=== PATIENT | female | born 1945 | race Caucasian/White ===

== ENCOUNTER 2016-12-07 14:28 | Day surgery (SDC) ==
[2016-12-07] MEDS ORDERED: KEFZOL 2 GM/D5W 50 ML ONE (15:05)
[2016-12-07] MEDS ORDERED: LR 1,000 ML ONE (15:05)
[2016-12-07] MEDS ORDERED: PEPCID ONE (16:12)
[2016-12-07] MEDS ORDERED: REGLAN ONE (16:12)
[2016-12-07] MEDS ORDERED: MARCAINE 0.25% PF/EPI 1:200,000 ONE (16:42)
[2016-12-07] MEDS ORDERED: NEOSPORIN G.U. IRRIGANT ONE (16:43)
[2016-12-07] MEDS ORDERED: DILAUDID ONE (18:17)
[2016-12-07] MEDS ORDERED: FENTANYL ONE (18:18)
[2016-12-07] MEDS ORDERED: DIPRIVAN 1% ONE (18:18)
[2016-12-07] MEDS ORDERED: NORCO-10 ONE (18:25)
--- NOTE | 2016-12-07 18:30 | OPERATIVE NOTE ---
PROCEDURE DATE: 12/07/2016 DATE OF SURGERY: 12/07/2016. PREOPERATIVE DIAGNOSIS: Displaced right Colles fracture. POSTOPERATIVE DIAGNOSIS: Displaced right Colles fracture. PROCEDURE: Open reduction internal fixation of right Colles fracture. SURGEON: Kaz Shah MD. SOLVENT PLANT OPERATOR: Thomas Ryan. ANESTHESIA: General. COMPLICATION: None. PROCEDURE IN DETAIL: This 71-year-old female presents for ORIF of the right distal radius. Risks, benefits and no guarantees were discussed, and she is willing to proceed. She was taken to the operating room and satisfactory anesthesia obtained. Right arm was prepped and draped in usual sterile fashion. A time-out was taken to confirm operative site, procedure, and patient. The arm was placed in gentle longitudinal traction, about the thumb, index and long finger. A volar approach to the distal radius was undertaken through the FCR sheath. The median nerve and flexor tendons were reflected ulnarly, and the volar surface of the distal radius dissected with an elevator. An open reduction of the fracture was noted which was a 2-part fracture. Near- anatomic reduction and good taoism of radial length was noted. The Synthes volar locking plate was then secured to the volar surface and secured with 4 bicortical screws along the plate, and six 18 mm posts distally. The C-arm was used to verify accurate fracture reduction and hardware placement. Afterwards, traction was released and the wrist taken through a range of motion with good stability of the repair. The incision was then irrigated and closed in layers with 2-0 Vicryl in the subcutaneous and 4-0 nylon on the skin. The surgical site was infiltrated with Marcaine for pain control. A volar splint was applied, and she was recovered from anesthesia and transferred to the recovery room in stable condition. Tourniquet was released with good return of capillary blood flow. No intraoperative complications were noted. Instrument count and sponge count was correct at the time of closure.
[2016-12-07 19:06] VITALS: BP 153/65
[2016-12-08] MEDS ORDERED: ROBINUL ONE (09:26)
[2016-12-08] MEDS ORDERED: ZOFRAN ONE (09:26)
[2016-12-08] MEDS ORDERED: XYLOCAINE-MPF 2% ONE (09:26)
== END 2016-12-07 19:00 | disposition home or self-care (01) ==
LOC: OR 14:28
PROVIDERS: ATTEND Orthopaedic Surgery Adult Reconstructive Orthopaedic Surgery
DX: S52.531A Colles' fracture of right radius, initial encounter for closed fracture (principal); G35 Multiple sclerosis; I10 Essential (primary) hypertension; K21.9 Gastro-esophageal reflux disease without esophagitis; E03.9 Hypothyroidism, unspecified
CPT/HCPCS: 76000; J0690; J1170; J2405; J3010; J7120

== ENCOUNTER 2018-12-19 13:19 | Inpatient (IN) ==
--- NOTE | 2018-12-19 14:05 | PROVIDER DOCUMENTATION ---
This chart was entered by Alta Britton Scribe, acting as scribe for Becky Quigley MD. HPI-Psychological Disorder - General Chief Complaint: Psych Stated Complaint: FALL/FACIAL INJURY Time Seen by Provider: 12/19/18 13:49 Source: patient Allergies/Adverse Reactions: Patient Allergies Allergy/AdvReac Type Severity Reaction Status Date / Time amoxicillin [Amoxicillin] Allergy RASH Verified 12/04/16 17:44 sulfamethoxazole Allergy RASH Verified 12/04/16 17:44 [From Bactrim] trimethoprim [From Bactrim] Allergy RASH Verified 12/04/16 17:44 Home Medications: Home Medication List Medication Instructions Recorded Confirmed Last Taken Type Clonazepam [Klonopin] 0.5 mg PO PRN PRN 07/28/16 12/07/16 10/11/16 09:00 History Furosemide [Lasix] 20 mg PO DAILY 07/28/16 12/07/16 12/06/16 08:00 History Metoprolol [Lopressor] 25 mg PO DAILY 07/28/16 12/07/16 12/07/16 08:00 History ROSUVAstatin [Crestor] 10 mg PO DAILY 07/28/16 12/07/16 12/06/16 20:00 History Tolterodine Tartrate [Detrol LA] 4 mg PO DAILY 07/28/16 12/07/16 12/06/16 08:00 History Amphetamine Salts [Adderall] 10 mg PO BID 10/12/16 12/07/16 10/12/16 09:00 History Dalfampridine [Ampyra] 10 mg PO BID 10/12/16 12/07/16 12/06/16 20:00 History Fluoxetine [Prozac] 60 mg PO DAILY 10/12/16 12/07/16 12/06/16 08:00 History Lansoprazole [Prevacid] 15 mg PO DAILY 10/12/16 12/07/16 12/07/16 08:00 History Potassium Chloride 20 meq PO DAILY 10/12/16 12/07/16 12/06/16 08:00 History Aspirin EC 81 mg PO DAILY 10/13/16 12/07/16 12/07/16 08:00 History Hydrocodone/APAP 7.5 mg/325 mg 1 each PO Q6H PRN PRN #12 tablet 12/04/1612/07/16 10:00 Rx [[place]-7.5] Ondansetron Odt [Zofran 4 mg Odt] 4 mg PO Q6H PRN PRN #20 tablet 12/04/1612/07/16 10:00 Rx Cephalexin [Keflex] 500 mg PO 4XDAY #12 capsule 12/07/16 Unknown Rx Hydrocodone/Acetaminophen [[place] 1 - 2 each PO Q4-8H PRN PRN #40 12/07/16 Unknown Rx 10-325 Tablet] tablet Levothyroxine [Synthroid] 25 microgm PO DAILY 12/07/16 12/07/16 12/06/16 08:00 History Promethazine [Phenergan] 25 mg PO Q6H PRN PRN #20 tablet 12/07/16 Unknown Rx - History of Present Illness-Psych Nature of Presenting Problem: 73 yof presents to ed w/co fell monday and right side of face is bruised and swollen after pt fainted. pt started taking new htn meds and felt it made her dizzy and was having difficulty walking. after fainting she quit taking them for 4-5 days now. pt also c/o hearing a male voice saying her name and that she is going to harm her and kill her family and that she is moron. pt states she went to see sister in [place] 6 weeks ago and the man followed her there and back. there are now other people with him. pt states she is supposed to have mri done tomorrow. family brought pt her concerned about her hearing voices and seeing people, living alone and falling. pt says the peopl have tried to get in her house, but she has an alarm system, which has not been alarming when they try to get in the house. Onset/Duration: reports: other (6 weeks of hallucinations) Review of Systems - Adult - REVIEW OF SYSTEMS - ADULT Constitutional: reports: no symptoms reported Eyes: reports: no symptoms reported Ears, Nose, Mouth & Throat: reports: no symptoms reported Cardiovascular: reports: no symptoms reported Respiratory: reports: no symptoms reported Gastrointestinal: reports: no symptoms reported Genitourinary: reports: no symptoms reported Musculoskeletal: reports: no symptoms reported Integumentary: reports: see HPI, other (bruise and swelling on right side of face from fall on monday) Neurological: reports: no symptoms reported Psychiatric: reports: see HPI, anxiety, anti-depressant use (pt takes prozac.), panic attacks, other (schizophrenic, hearing voices.). denies: alcohol/drug dependence, depression, insomnia, suicidal thoughts Endocrine: reports: no symptoms reported Hematologic/Lymphatic: reports: no symptoms reported Allergic/Immunologic: reports: no symptoms reported All Other Systems: Reviewed and Negative Past History - Adult - PAST MEDICAL HISTORY-ADULT Review of Records: reports: Old Records Reviewed, Nursing Assessment Review, Medications Reviewed, Social history reviewed & non-contributory. Major Childhood Illnesses: reports: denies history Cardiovascular: reports: CHF, HTN Respiratory: reports: denies history Gastrointestinal: reports: denies history Obstetrical/Gynecological: reports: denies history Genitourinary: reports: kidney stones Musculoskeletal: reports: other (multiple sclerosis) Neurological: reports: denies history Psychiatric: reports: anxiety, depression Endocrine/Immune: reports: denies history Other Conditions: reports: denies history - PRIOR SURGERIES/PROCEDURES Surgical/Procedure History: reports: orthopedic (extremity) (left wrist), other (bi-lat tka, cyst removed from kidney) - IMMUNIZATION STATUS Childhood Immunizations: See Nurse Assessment Flu Vaccine: See Nurse Assessment - FAMILY HISTORY Family History: reviewed, not pertinent Physical Exam-Psych Focus - Physical Exam-Psych Initial Vital Signs Reviewed: Yes Appearance: appropriate appearance, neat, no apparent distress, denies illness, alert, anxious, other (right facial aging ecchymosis of cheek, pt said she had a black eye and it is better, mildly tender without crepitus) Neurological: alert, normal mood/affect, calm, 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, oriented x 3 Thoughts/Hallucinations: auditory hallucinations, paranoid, visual hallucinations HENMT: moist mucous membranes, pharynx normal Neck: non-tender, full range of motion Respiratory: chest non-tender, lungs clear, normal breath sounds, no pleuratic chest pain, no respiratory distress, no accessory muscle use Cardiovascular: normal peripheral pulses, regular rate, rhythm Abdominal Exam: non tender, soft Lymphatic: no adenopathy Back Exam: normal inspection Extremity: normal range of motion, normal gait Integumentary: normal color, normal turgor, warm/dry, other (see HEENT) Progress - PLAN OF CARE/RESULTS Progress/Plan/Lab Results: Vital Signs - 8 hr 12/19/18 13:37 Temperature 98.3 F Pulse Rate 79 Respiratory Rate 18 Blood Pressure 166/91 O2 Sat by Pulse Oximetry 95 Laboratory Results - last 24 hr 12/19/18 12/19/18 12/19/18 13:45 14:00 14:00 WBC 5.39 RBC 4.12 L Hgb 12.2 Hct 37.8 MCV 91.7 MCH 29.6 MCHC 32.3 L RDW Std Deviation 13.7 Plt Count 238 MPV 10.2 Immature Gran % (Auto) 0.2 Neut % (Auto) 62.2 Lymph % (Auto) 27.8 [place] % (Auto) 8.5 Eos % (Auto) 0.7 Baso % (Auto) 0.6 Immature Gran # (Auto) 0.01 Neut # (Auto) 3.35 Lymph # (Auto) 1.50 [place] # (Auto) 0.46 Eos # (Auto) 0.04 Baso # (Auto) 0.03 Sodium 143 Potassium 3.8 Chloride 102 Carbon Dioxide 28 Anion Gap 13 BUN 7 L Creatinine 0.8 Estimated GFR/1.73 m2 > 60 BUN/Creatinine Ratio 9 Glucose 113 H Calculated Osmolality 284 Calcium 8.5 L Total Bilirubin 1.00 AST 15 ALT 7 L Alkaline Phosphatase 62 Ukc-U-Suehsoadzte Pept Total Protein 6.7 Albumin 3.9 Globulin 3.0 Albumin/Globulin Ratio 1.0 TSH Free T4 Salicylates < 3.00 L Urine Opiates Screen NONE DETECTED Ur Oxycodone Screen NONE DETECTED Urine Methadone Screen NONE DETECTED U Propoxyphene Qual NONE DETECTED Acetaminophen < 1.2 L Ur Barbituates Screen NONE DETECTED Ur Tricyclics Screen NONE DETECTED Ur Phencyclidine Scrn NONE DETECTED Ur Amphetamines Screen NONE DETECTED U Methamphetamines Scrn NONE DETECTED U Benzodiazepines Scrn PRESUMPTIVE POSITIVE A Urine Cocaine Screen NONE DETECTED U Cannabinoids Screen NONE DETECTED Plasma/Serum Ethyl Alc 12/19/18 12/19/18 12/19/18 14:00 14:00 14:00 WBC RBC Hgb Hct MCV MCH MCHC RDW Std Deviation Plt Count MPV Immature Gran % (Auto) Neut % (Auto) Lymph % (Auto) [place] % (Auto) Eos % (Auto) Baso % (Auto) Immature Gran # (Auto) Neut # (Auto) Lymph # (Auto) [place] # (Auto) Eos # (Auto) Baso # (Auto) Sodium Potassium Chloride Carbon Dioxide Anion Gap BUN Creatinine Estimated GFR/1.73 m2 BUN/Creatinine Ratio Glucose Calculated Osmolality Calcium Total Bilirubin AST ALT Alkaline Phosphatase Xda-A-Qyvjxsmpiqo Pept Total Protein Albumin Globulin Albumin/Globulin Ratio TSH 0.23 L Free T4 1.66 Salicylates Urine Opiates Screen Ur Oxycodone Screen Urine Methadone Screen U Propoxyphene Qual Acetaminophen Ur Barbituates Screen Ur Tricyclics Screen Ur Phencyclidine Scrn Ur Amphetamines Screen U Methamphetamines Scrn U Benzodiazepines Scrn Urine Cocaine Screen U Cannabinoids Screen Plasma/Serum Ethyl Alc 12/19/18 14:00 WBC RBC Hgb Hct MCV MCH MCHC RDW Std Deviation Plt Count MPV Immature Gran % (Auto) Neut % (Auto) Lymph % (Auto) [place] % (Auto) Eos % (Auto) Baso % (Auto) Immature Gran # (Auto) Neut # (Auto) Lymph # (Auto) [place] # (Auto) Eos # (Auto) Baso # (Auto) Sodium Potassium Chloride Carbon Dioxide Anion Gap BUN Creatinine Estimated GFR/1.73 m2 BUN/Creatinine Ratio Glucose Calculated Osmolality Calcium Total Bilirubin AST ALT Alkaline Phosphatase Bkk-I-Ltpfgnuoxcb Pept 1759 H Total Protein Albumin Globulin Albumin/Globulin Ratio TSH Free T4 Salicylates Urine Opiates Screen Ur Oxycodone Screen Urine Methadone Screen U Propoxyphene Qual Acetaminophen Ur Barbituates Screen Ur Tricyclics Screen Ur Phencyclidine Scrn Ur Amphetamines Screen U Methamphetamines Scrn U Benzodiazepines Scrn Urine Cocaine Screen U Cannabinoids Screen Plasma/Serum Ethyl Alc Orders Category Date Time Status Consult for Inpt Psych Tx As Directed Care 12/19/18 13:47 Inactive Initiate Psych Med Clear.Huong As Directed Care 12/19/18 13:47 Active CHEST-2 VIEWS [RAD] Stat Exams 12/19/18 16:[address] HEAD W/O CONTRAST [CT] Stat Exams 12/19/18 14:[address] MAXILLOFACIAL(SINUS) W/O CO [CT] Stat Exams 12/19/18 14:02 Completed ACETAMINOPHEN [TDM] Stat Lab 12/19/18 14:00 Completed ALCOHOL BLOOD Stat Lab 12/19/18 14:00 Completed BNP [PRO B-NATRIURETIC PEPTIDE] Stat Lab 12/19/18 14:00 Completed CBC WITH DIFF [HEME] Stat Lab 12/19/18 14:00 Completed COMPREHENSIVE METABOLIC PANEL [CHEM] Stat Lab 12/19/18 14:00 Completed FREE T4 Stat Lab 12/19/18 14:00 Completed SALICYLATES [TDM] Stat Lab 12/19/18 14:00 Completed TSH Stat Lab 12/19/18 14:[address] W/POSS RFLX CULT [URINALYSIS] Stat Lab 12/19/18 17:39 Uncollected URINE DRUG SCREEN PL Stat Lab 12/19/18 13:45 Completed Psychiatric Clearance (Initial) Stat Oth 12/19/18 13:47 Ordered EKG [EKG] Stat Ther 12/19/18 13:[address] and facial neg for injury 1542 d/w Dr Cross EKG, agrees with afib which is new since though 2015 which is most recent EKG, was NSR then. Pt may need an outpatient eval by cardiology based on family agreement. [facility] asked for chest xray which has been done .1740 d/w Martha NOVAK at [facility], concern is that afib is new, apparently, and BNP is elevated, they feel she needs cardiac eval before accepting, call out to [facility], UA did not get done either 1807 d/w Ciro HPI exam results [facility] concerns new afib fall/syncope last week and requests cardiac eval, Dr Lizama is pts cards , agreed to admit, UA pending Result Diagrams: 12/19/18 14:00 12/19/18 14:00 - REASSESSMENT Reassessment #1 Time Reassessed: 17:36 (Dr. quigley spoke with martha at [facility] about pt ) Status: unchanged - EKG 1 Time of EKG reading by physician:: 14:00 EKG Read and Signed by:: Becky Quigley EKG Interpretation (*Must complete 3 of following elements*): Abnormal Rate: 72 Rhythm: Afib [place]: normal ST Wave: non-specific ST changes (non specific st and t wave abnormality) Departure - Departure Date of Disposition Decision: 12/19/18 Time of Disposition Decision: 17:54 DIAGNOSIS: Fall, Paranoia (psychosis), Auditory hallucinations, Visual hallucinations, Atrial fibrillation Disposition: ADMITTED INPATIENT 09 Certified Medical Emergency: Emergent Condition: Good Referrals and Follow-Ups: Sue Goldman MD [Primary Care Provider] - - Critical Care Note This patient required my direct & personal management of CC.: No Attestation - Physician/ TAL Attestation The physician spent face to face time with patient:: Yes Advanced Practice Provider documentation review:: Supervising physician onsite and consulted in the evaluation and care of this patient. The physician did have a face to face encounter with the patient. This chart was documented by the indicated scribe, (Alta Britton Scribe) and accurately reflects the services I performed and decisions made by me, Becky Quigley MD, as attested by the provider's signature.
[2018-12-19 14:26] LABS: BASO# 0.03 X1000 (0.0-0.2); BASO% 0.6 % (0.0-0.8); EOS# 0.04 X1000 (0.0-0.7); EOS% 0.7 % (0.0-10.0); HEMATOCRIT 37.8 % (37.0-47.0); HEMOGLOBIN 12.2 g/dL (12.0-16.0); IMM GRAN# 0.01 X1000 (0.0-0.04); IMM GRAN% 0.2 % (0.0-0.5); LYMPH% 27.8 % (20.5-51.1); MCH 29.6 PG (27-31); MCHC 32.3 g/dL (33-37); MCV 91.7 FL (81-99); MONO# 0.46 X1000 (0.11-0.59); MONO% 8.5 % (1.7-9.3); MPV 10.2 FL (7.4-10.4); NEUT# 3.35 X1000 (1.4-6.5); NEUT% 62.2 % (42.2-75.2); PLT 238 X1000 (130-400); RBC 4.12 XMIL (4.2-5.4); RDW 13.7 % (11.5-14.5); WBC 5.39 X1000 (4.8-10.8)
[2018-12-19 14:27] LABS: ACETAMINOPHEN < 1.2 ug/mL (10-30); AGAP 13; ALBUMIN 3.9 g/dL (3.5-5.0); ALKALINE PHOSPHATASE 62 U/L (32-104); BUN 7 mg/dL (8-22); CALCIUM 8.5 mg/dL (8.8-10.2); CHLORIDE 102 mmol/L (98-107); COSMO 284; CREATININE 0.8 mg/dL (0.5-0.9); ESTIMATED GFR > 60; GLUCOSE 113 mg/dL (70-104); GOT 15 U/L (10-30); GPT 7 U/L (10-36); POTASSIUM 3.8 mmol/L (3.5-5.1); SALICYLATES < 3.00 mg/dL (3-10); SODIUM 143 mmol/L (136-145); TCO2 28 mmol/L (25-35); TOTAL PROTEIN 6.7 g/dL (6.3-8.3)
[2018-12-19 14:30] LABS: UR AMPHETAMINES QUAL NONE DETECTED (NONE DETECT); UR BARBITUATES QUAL NONE DETECTED (NONE DETECT); UR BENZODIAZEPIN QUAL PRESUMPTIVE POSITIVE (NONE DETECT); UR CANNABINOIDS QUAL NONE DETECTED (NONE DETECT); UR COCAINE QUAL NONE DETECTED (NONE DETECT); UR METHADONE QUAL NONE DETECTED (NONE DETECT); UR METHAMPHETAMINE QUAL NONE DETECTED (NONE DETECT); UR OPIATES QUAL NONE DETECTED (NONE DETECT); UR OXYCODONE QUAL NONE DETECTED (NONE DETECT); UR PCP QUAL NONE DETECTED (NONE DETECT); UR PROPOXYPHENE QUAL NONE DETECTED (NONE DETECT); UR TCA QUAL NONE DETECTED (NONE DETECT)
--- NOTE | 2018-12-19 14:34 | Diag Imaging Result Doc PS360 ---
EXAM: CT HEAD W/O CONTRAST HISTORY: fall TECHNIQUE: CT head without contrast COMPARISON: 12/04/2016 FINDINGS: No parenchymal hemorrhage. No epidural or subdural hematoma. No subarachnoid hemorrhage. There are chronic microvascular ischemic changes. No mass identified on this noncontrasted exam. No hydrocephalus. No skull fracture. IMPRESSION: No hemorrhage. No injury. This exam was performed using automated exposure control, adjustment of mA or kV according to patient size, and/or use of iterative reconstruction technique. Electronically signed by Catracho Arango 12/19/2018 2:31 PM
--- NOTE | 2018-12-19 14:39 | Diag Imaging Result Doc PS360 ---
EXAM: CT MAXILLOFACIAL(SINUS) W/O CO HISTORY: fall, facial injury TECHNIQUE: CT face without contrast COMPARISON: None. FINDINGS: No sinus opacification. No air-fluid levels. No fracture. No dislocation. Right cheek subcutaneous edema consistent with a small hematoma. IMPRESSION: No acute bony injury Electronically signed by Catracho Arango 12/19/2018 2:37 PM
--- NOTE | 2018-12-19 16:31 | Diag Imaging Result Doc PS360 ---
EXAM: CHEST-2 VIEWS HISTORY: per [place] TECHNIQUE: Chest two views COMPARISON: 09/01/2016 FINDINGS: The lungs are hyperexpanded. The heart is not enlarged. The vessels are not distended. There are minimal increased markings in the right lung base. No pleural effusions. IMPRESSION: Atelectasis versus a tiny infiltrate in the right lung base Electronically signed by Catracho Arango 12/19/2018 4:29 PM
[2018-12-19] MEDS ORDERED: NITROGLYCERIN SL PRN (18:13)
[2018-12-19] MEDS ORDERED: ZOFRAN IV PRN (18:13)
[2018-12-19] MEDS ORDERED: TYLENOL PO PRN (18:13)
[2018-12-19 18:22] LABS: BILIRUBIN URINE NEGATIVE (NEGATIVE); BLOOD URINE TRACE (NEGATIVE); CLARITY CLEAR (CLEAR); COLOR YELLOW; GLUCOSE URINE NEGATIVE (NEGATIVE); KETONE URINE 2+(Moderate) mg/dL (NEGATIVE); LEUKOCYTES URINE 1+ (NEGATIVE); NITRITE URINE NEGATIVE (NEGATIVE); PH URINE 6.5; PROTEIN URINE NEGATIVE (NEGATIVE); SP GRAVITY URINE 1.015; UROBILINOGEN URINE NORMAL
[2018-12-19 18:31] LABS: URINE SOURCE CLEAN CATCH
[2018-12-19 18:33] LABS: URINE BACTERIA 2+ /HFP; URINE EPITHELIAL CELLS >10 /HPF (<10); URINE RBC <10 /HPF (<10)
[2018-12-19 18:34] LABS: URINE CAST NONE SEEN /LPF; URINE CRYSTAL NONE SEEN /HPF; URINE YEAST NONE SEEN /HPF
[2018-12-19] MEDS: LOVENOX SUBQ SCH (18:38)
--- NOTE | 2018-12-19 22:56 | HISTORY AND PHYSICAL ---
CHIEF COMPLAINT: Fall with facial injury. HISTORY OF PRESENT ILLNESS: The patient is a 73-year-old female who presented to the emergency department after having fallen several days ago and bruised her face. She still had some bruising and swelling on her face. The patient states that she fainted. She has no recollection of the event, does not remember feeling lightheaded, weak or dizzy prior to the event. Does not remember having any disorientation after the event. Does note that she started taking new blood pressure medications and has felt dizzy off and on and having difficulty walking. States that she stopped them 4 to 5 days ago, which was a few days prior to her fall. The patient unfortunately notes that she has been hearing a male voice stating her name, stating it is going to harm her and kill her family. Notes that she went to visit her sister 6 weeks ago in [place] and feels as though the person followed her there and back. Now notes that there are more people with him. They are also talking to her. She states that people have tried to get into her house, and although she has an alarm system, somehow they have been able to get in without the alarm going off. ALLERGIES: Amoxicillin, Bactrim causing rash. MEDICATIONS: Klonopin 0.5 p.r.n., Lasix 20, metoprolol 25 daily, Crestor 10, Detrol LA 4, Adderall 10 twice daily. It appears as though she has been on Synthroid and hydrocodone in the past. Unfortunately do not have a current active list. REVIEW OF SYSTEMS: Essentially unobtainable from Ms. Casarez given her confusion, although the family that is with her denies any knowledge of fevers, upper respiratory infection and denied any knowledge of GI or issues or chest pain or shortness of breath. PAST MEDICAL HISTORY: Congestive heart failure, hypertension, multiple sclerosis, chronic kidney stones. She has had left wrist surgery. She has had cysts removed from the kidneys and bilateral knee replacement. FAMILY HISTORY: Noncontributory. SOCIAL HISTORY: Patient currently lives at home alone. She does have family in the area that helps take care of her. She does not smoke or drink. PHYSICAL EXAMINATION: VITAL SIGNS: Temperature 98.3 degrees, pulse 79, respiratory rate 18, BP 166/91. GENERAL: Patient is awake, alert. She is currently in no respiratory distress. She is sitting in the chair, very pleasant to talk with, calm. HEENT: Normocephalic. NECK: Supple. CARDIOVASCULAR: Regular rate. No murmurs. CHEST: Clear. Nonlabored. ABDOMEN: Soft, nondistended. EXTREMITIES: Moves all extremities. NEUROLOGIC: No focal neurological changes, although patient is awake and alert. She is oriented to person, place and being at the hospital. She is confused and has been hearing voices. ASSESSMENT: 1. Atrial fibrillation. Currently she is rate controlled, and on exam her heart rate is fairly regular, but her EKG demonstrates atrial fibrillation. Does have a history of congestive heart failure, which certainly could be the causal agent of her atrial fibrillation. We will check thyroid, rule out myocardial infarction, place her on telemetry and follow. 2. Congestive heart failure. We will check an echocardiogram to make sure this has not worsened. 3. Syncope of undetermined origin. Certainly her syncopal episode could have been from an irregular rhythm but also could have had vasovagal syncope. Given her confusion, this is a difficult history to obtain as this occurred while she was alone. 4. Hypertension. 5. Others. 6. Dementia. PLAN: We will continue patient in the hospital, place her on telemetry, rule out NV. Check an echo. After she is stable, we will consult Margie Forrest. cc: Shan Tanner MD
[2018-12-20] MEDS ORDERED: BENADRYL PO PRN (00:12)
[2018-12-20] MEDS: PRILOSEC PO SCH (06:13)
[2018-12-20 06:35] LABS: HEMATOCRIT 35.1 % (37.0-47.0); HEMOGLOBIN 11.3 g/dL (12.0-16.0); MCH 29.7 PG (27-31); MCHC 32.2 g/dL (33-37); MCV 92.1 FL (81-99); MPV 10.5 FL (7.4-10.4); RBC 3.81 XMIL (4.2-5.4); WBC 4.16 X1000 (4.8-10.8)
[2018-12-20 06:52] LABS: AGAP 13; ALBUMIN 3.5 g/dL (3.5-5.0); ALKALINE PHOSPHATASE 56 U/L (32-104); BUN 8 mg/dL (8-22); CALCIUM 8.1 mg/dL (8.8-10.2); CHLORIDE 103 mmol/L (98-107); CHOLESTEROL 82 mg/dL (0-200); COSMO 284; CREATININE 0.7 mg/dL (0.5-0.9); ESTIMATED GFR > 60; GLUCOSE 106 mg/dL (70-104); GOT 14 U/L (10-30); GPT 5 U/L (10-36); HDL 32 mg/dL (45-65); LDL 34 mg/dL; POTASSIUM 3.4 mmol/L (3.5-5.1); SODIUM 143 mmol/L (136-145); TCO2 27 mmol/L (25-35); TOTAL PROTEIN 5.9 g/dL (6.3-8.3); TRIGLYCERIDES 81 mg/dL (35-135); VLDL 16 mg/dL
[2018-12-20] MEDS: SYNTHROID PO SCH (07:40)
[2018-12-20] MEDS: ROCEPHIN 1 GM in NS 50 ML IV SCH (07:40)
[2018-12-20] MEDS: DETROL LA PO SCH (08:52)
[2018-12-20] MEDS: PROZAC PO SCH (08:52)
[2018-12-20] MEDS: LOPRESSOR PO SCH (08:53)
[2018-12-20] MEDS: LASIX PO SCH (08:53)
[2018-12-20] MEDS: ASPIRIN EC PO SCH (09:00)
[2018-12-20] MEDS ORDERED: ASPIRIN PO SCH (09:00)
[2018-12-20] MEDS ORDERED: LANSOPRAZOLE 15 MG PO SCH (09:00)
--- NOTE | 2018-12-20 09:15 | EKG Report ---
Test Performed on : 12/19/2018 1:57:49 PM Test Reason : psych medical screen Blood Pressure : / mmHG Vent. Rate : 072 BPM Atrial Rate : 102 BPM P-R Int : 000 ms QRS Dur : 084 ms QT Int : 424 ms P-R-T Axes : 000 045 074 degrees QTc Int : 464 ms Atrial fibrillation. Nonspecific ST and T wave abnormality Abnormal ECG When compared with ECG of 01-SEP-2016 11:04, Atrial fibrillation. has replaced Sinus rhythm. Nonspecific T wave abnormality now evident in Lateral leads Unconfirmed Result
[2018-12-20] MEDS: LOVENOX SUBQ SCH ×2 (17:09→17:14)
[2018-12-20] MEDS ORDERED: BLISTEX MEDICATED BERRY LIP BALM TOP PRN (18:41)
[2018-12-20] MEDS ORDERED: KLONOPIN PO SCH (21:00)
[2018-12-20] MEDS ORDERED: BENADRYL PO SCH (21:00)
[2018-12-20] MEDS ORDERED: CRESTOR PO SCH (21:00)
--- NOTE | 2018-12-20 23:34 | PROGRESS NOTE ---
DATE: 12/20/2018 SUBJECTIVE: Patient herself has no complaints. There is no family currently present. She denies any pain. Denies any fevers or chills. PHYSICAL EXAMINATION: Vital Signs: Temperature 97.7 degrees, pulse stable respiratory 18, BP 159/81. General: Patient is awake, alert. Currently, she is in no distress. HEENT: Normocephalic. Neck: Supple. CARDIOVASCULAR: Regular rate. Chest: Relatively clear, still with leukocytosis. ASSESSMENT: 1. Atrial fibrillation. Currently she is rate controlled. Will continue to follow. 2. Congestive heart failure. Echo is pending currently.. 3. Syncope of undetermined origin. 4. Hypertension. 5. Others. 6. Dementia. Plan: Patient has been stable. If echo and exam remain normal, we will consult [facility] for eval. cc: Shan Tanner MD MTDD
[2018-12-21] MEDS: SYNTHROID PO SCH (06:09)
[2018-12-21] MEDS: ROCEPHIN 1 GM in NS 50 ML IV SCH (06:09)
[2018-12-21] MEDS: PRILOSEC PO SCH (06:09)
[2018-12-21] MEDS: LASIX PO SCH (09:20)
[2018-12-21] MEDS: PROZAC PO SCH (09:20)
[2018-12-21] MEDS: LOPRESSOR PO SCH (09:21)
[2018-12-21] MEDS: ASPIRIN EC PO SCH (09:21)
[2018-12-21] MEDS: DETROL LA PO SCH (09:21)
[2018-12-21 16:28] VITALS: BP 130/43
[2018-12-21] MEDS: LOVENOX SUBQ SCH (18:38)
--- NOTE | 2018-12-21 23:20 | DISCHARGE SUMMARY ---
ADMISSION DATE: 12/19/2018 DISCHARGE DATE: 12/21/2018 ADDENDUM: Patient seen and examined by myself. Full note dictated and discussed with nurse practitioner. On discharge the patient is awake, alert but confused. As noted in the HPI, she has been hearing voices. Thankfully, she had a uneventful hospital course. Blood pressures are improved. She was admitted to the hospital with atrial fibrillation,. Currently she is sinus rhythm. She is doing well. Echocardiogram is pending. The patient had a presumed urinary tract infection and was placed on antibiotics. DISPOSITION: On discharge, she is awake, alert. She is still confused. She is in no distress, and will be discharged to [facility]. cc: Shan Tanner MD
--- NOTE | 2018-12-22 19:40 | DISCHARGE SUMMARY ---
ADMISSION DATE: 12/19/2018 DISCHARGE DATE: 12/21/2018 DIAGNOSES: 1. Atrial fibrillation chronic with controlled rate. 2. Congestive heart failure. 3. Syncope of undetermined origin. 4. Hypertension. 5. Kidney stones. 6. Thyroid disease. DIAGNOSTICS: 1. On 12/19/2018, CT of the head revealed no hemorrhage, no injury. 2. Maxillofacial CT revealed no acute bony injury. 3. Chest x-ray, atelectasis with a tiny infiltrate in the right lung base. HOSPITAL COURSE: Ms. Casarez presented to the emergency room for medical clearance, to be admitted to [facility] and evaluated for a bruise to the right side of her face from a fall that had been several days prior. CT of the head and maxillofacial CT both revealed no acute injury. Heart rate was controlled throughout the hospitalization, ranging from 47 to 79. She was in atrial fibrillation. She does have a history of congestive heart failure. Echocardiogram was performed. We are awaiting results. DISCHARGE PHYSICAL EXAMINATION: Cardiovascular: Regular rate and rhythm. S1 and S2 appreciated. Pulmonary: Breath sounds are clear with no increased work of breathing noted. Gastrointestinal: Abdomen is soft, nontender, nondistended with bowel sounds in all 4 quadrants. Skin: Warm and dry. She does have a bruise to the right side of her face from a fall prior to admission. Discharge Vital Signs: Blood pressure is 149/58 with a heart rate of 64, respirations 16, temperature is 98 oral with room air saturations 95-98%. DISCHARGE MEDICATIONS: Benadryl 25 mg p.o. at bedtime, enteric-coated aspirin 81 mg p.o. daily, Crestor 10 mg p.o. at bedtime, Klonopin 0.5 mg at bedtime, Lasix 20 mg daily, Lopressor 50 mg daily, Prevacid 15 mg daily. Prozac 60 mg daily. Tolterodine tartrate 4 mg p.o. daily. PLAN: 1. TSH needs to be rechecked in 2 weeks. 2. She is being discharged in transfer to [facility] in stable condition. TIME SPENT: This is a greater than 30 minute discharge. Dictated by MARCIN Arredondo for Shan Tanner MD This chart was documented by, MARCIN Arredondo and accurately reflects the services performed, treatment plan and medical decisions as attested by the providers signature Shan Tanner MD. cc: MARCIN Arredondo MD [facility]
--- NOTE | 2018-12-24 10:39 | ECHO REPORT ---
ORDER DATE: 12/20/2018 MEASUREMENTS: 1. Septal thickness 1. 2. Posterior wall thickness 1. 3. Left ventricular internal diameter diastole 5.8. 4. Left ventricular internal diameter in systole 3.8. 5. Left atrium 4.4. 6. Aortic root 3. SUMMARY: 1. Adequate quality study. 2. Aortic valve is trileaflet and opens normally on 2-dimensional images. Peak gradient across the aortic valve is less than 10 mmHg. Mitral, tricuspid, and pulmonic valves are without evidence of structural abnormality with very mild mitral regurgitation and mild tricuspid regurgitation. Estimated systolic PA pressure by Doppler is 50 mmHg suggesting moderate pulmonary hypertension. The aortic root is normal in size. 3. Normal left ventricular dimensions suggested on 2-dimensional images. Estimated left ejection fraction appears to be approximately 60%. No regional wall motion abnormality is evident. Mild left atrial enlargement is demonstrated. Right atrium is mildly enlarged. Right ventricle is grossly normal in size. 4. No pericardial effusion. 5. Appearance of inferior vena cava suggests normal central venous pressure. cc: MD Shan Urrutia MD
== END 2018-12-21 19:52 | DRG 309 ==
LOC: P.ED 13:19 → P.MEDSURG 19:02
PROVIDERS: ATTEND Family Medicine
CPT/HCPCS: 70450; 70486; 71020; 71046; 80053; 80061; 80104; 80196; 80301; 80305; 80307; 80320; 80324; 80329; 81001; 82003; 82055; 82550; 83735; 83880; 84439; 84443; 84484; 85025; 85027; 87040; 87088; 93005; 93306; 94761; 99285; A9270; G0431; G0434; G0477; G0480; G6038; G6039; G6040; J0696; J1650

== ENCOUNTER 2019-04-16 17:42 | Inpatient (IN) ==
[2019-04-16 18:02] LABS: ALLEN TEST YES; BE -2.5 mmoll (-3.0-3.0); BLOOD TYPE ARTERIAL; METHB 1.4 % (0.0-1.5); O2(CT) 14.8 mL/dL (15.0-23.0); O2HB 96.3 % (95.0-99.0); PCO2(98.6) 33 mmHg (35-45); PO2(98.6) 114 mmHg (60-100); SAMPLE BLOOD; SAO2 99.3 % (95.0-100.0); THB 10.8 g/dL (11.5-17.4); pH(98.6) 7.42 (7.35-7.45)
[2019-04-16 18:03] LABS: MODALITY CANNULA
--- NOTE | 2019-04-16 18:10 | PROVIDER DOCUMENTATION ---
HPI-Chest Pain - General Chief Complaint: Chest Pain Stated Complaint: AMS Time Seen by Provider: 04/16/19 17:47 Source: patient Allergies/Adverse Reactions: Patient Allergies Allergy/AdvReac Type Severity Reaction Status Date / Time amoxicillin [Amoxicillin] Allergy RASH Verified 04/16/19 18:33 sulfamethoxazole Allergy RASH Verified 04/16/19 18:33 [From Bactrim] trimethoprim [From Bactrim] Allergy RASH Verified 04/16/19 18:33 Home Medications: Home Medication List Medication Instructions Recorded Confirmed Last Taken Type Furosemide [Lasix] 20 mg PO DAILY 07/28/16 04/16/19 04/16/19 07:00 History Metoprolol [Lopressor] 50 mg PO TID 07/28/16 04/16/19 04/16/19 12:00 History ROSUVAstatin [Crestor] 10 mg PO HS 07/28/16 04/16/19 04/15/19 20:00 History Lansoprazole [Prevacid] 15 mg PO DAILY 10/12/16 04/16/19 04/15/19 20:00 History Aspirin EC 81 mg PO DAILY 10/13/16 04/16/19 04/16/19 07:00 History Interferon Beta-1B [Betaseron] 0.3 mg SUBQ EVERY OTHER DAY 12/19/18 04/16/19 04/15/19 20:00 History Tolterodine Tartrate [Tolterodine 4 mg PO DAILY 12/19/18 04/16/19 04/16/19 07:00 History Tartrate ER] Apixaban [Eliquis] 5 mg PO BID 04/16/19 04/16/19 04/16/19 07:00 History Aripiprazole [Abilify] 5 mg PO QAM 04/16/19 04/16/19 04/16/19 07:00 History Levothyroxine Sodium [Levoxyl] 12.5 mcg PO DAILY 04/16/19 04/16/19 04/16/19 07:00 History Losartan/Hydrochlorothiazide 1 tab PO QAM 04/16/19 04/16/19 04/16/19 07:00 Hi story [Losartan-Hctz 100-25 mg Tab] Ziprasidone [Geodon] 60 mg PO WBREAKFAST 04/16/19 04/16/19 04/16/19 07:00 History Ziprasidone [Geodon] 60 mg PO WSUPPER 04/16/19 04/16/19 04/15/19 17:00 History - History of Present Illness-CP Location: reports: substernal Chest Pain Radiation: reports: no radiation Quality of Pain: reports: aching, burning, dull Severity in ED: mild Onset/Duration: just prior to arrival Timing: still present Context/Activities at Onset: reports: none Modifying Factors: improves with: nothing Associated Symptoms: reports: heartburn Nitro Today/Relief: 0.4 mg x 1 Aspirin Treatment Today: 81 mg x 1 Prior Chest Pain/Cardiac Workup: reports: cardiac cath, heart attack, other (stint) Similar Symptoms Previously?: No Recently Seen Here or By Another Healthcare Provider: No Review of Systems - Adult - REVIEW OF SYSTEMS - ADULT Constitutional: reports: no symptoms reported Eyes: reports: no symptoms reported Ears, Nose, Mouth & Throat: reports: no symptoms reported Cardiovascular: reports: see HPI, chest pain Respiratory: reports: no symptoms reported Gastrointestinal: reports: no symptoms reported Genitourinary: reports: no symptoms reported Musculoskeletal: reports: no symptoms reported Integumentary: reports: no symptoms reported Neurological: reports: no symptoms reported Psychiatric: reports: no symptoms reported Endocrine: reports: no symptoms reported Hematologic/Lymphatic: reports: no symptoms reported Allergic/Immunologic: reports: no symptoms reported All Other Systems: Reviewed and Negative Past History - Adult - PAST MEDICAL HISTORY-ADULT Review of Records: reports: Old Records Reviewed, Nursing Assessment Review, Medications Reviewed, Social history reviewed & non-contributory. Major Childhood Illnesses: reports: denies history Cardiovascular: reports: CHF, HTN Respiratory: reports: denies history Gastrointestinal: reports: denies history Obstetrical/Gynecological: reports: denies history Genitourinary: reports: kidney stones Musculoskeletal: reports: other (multiple sclerosis) Neurological: reports: denies history Psychiatric: reports: anxiety, depression Endocrine/Immune: reports: denies history Other Conditions: reports: denies history - PRIOR SURGERIES/PROCEDURES Surgical/Procedure History: reports: orthopedic (extremity) (left wrist), other (bi-lat tka, cyst removed from kidney) - IMMUNIZATION STATUS Childhood Immunizations: See Nurse Assessment Flu Vaccine: See Nurse Assessment - FAMILY HISTORY Family History: reviewed, not pertinent - SOCIAL HISTORY Smoking: denies Substance Use: none/never Alcohol Use Frequency: never Living Situation: family Physical Exam-General - PHYSICAL EXAM-ADULT Initial Vital Signs Reviewed: Yes - CONSTITUTIONAL General Appearance: appears well, alert, no apparent distress - EYES Eyes: PERRL/EOMI, pink conjunctivae - HEAD, EARS, NOSE, MOUTH & THROAT HENMT: normocephalic/atraumatic, moist mucous membranes - NECK Neck: non-tender, full range of motion - RESPIRATORY Respiratory: chest non-tender, lungs clear, normal breath sounds. negative: crackles, rales, rhonchi, stridor, wheezing - CARDIOVASCULAR Cardiovascular: normal peripheral pulses, regular rate, rhythm - GASTROINTESTINAL (ABDOMEN) Abdominal Exam: normal bowel sounds, non tender, soft. negative: guarding, rigid, rebound, tenderness - LYMPHATIC Lymphatic: no adenopathy - MUSCULOSKELETAL Back Exam: normal inspection Extremity: normal range of motion, non-tender, normal gait Peripheral Pulses: radial (R): 2+, radial (L): 2+, dorsalis-pedis (R): 2+, dorsalis-pedis (L): 2+ - SKIN Integumentary: normal color, normal turgor, warm/dry - NEUROLOGIC Neurologic: grossly normal - PSYCHIATRIC Psych/Mental Status: normal mood/affect, normal thought content, normal thought process, oriented x 3 - HEART Score HEART Score: History: Slightly Suspicious HEART Score: ECG: Normal HEART Score: Age: > or = 65 Years HEART Score: Risk Factors for Atherosclerotic Disease: 1 or 2 Risk Factors HEART Score: Troponin: < or = Normal Limit Total HEART Score:: 3 Progress - PLAN OF CARE/RESULTS Progress/Plan/Lab Results: Vital Signs - 8 hr 04/16/19 17:45 04/16/19 18:00 04/16/19 18:20 Temperature 97 F L Pulse Rate 68 68 68 Respiratory Rate 18 18 16 Blood Pressure 92/47 96/46 108/55 O2 Sat by Pulse Oximetry 99 100 100 04/16/19 18:38 04/16/19 19:00 Temperature Pulse Rate 66 68 Respiratory Rate 18 18 Blood Pressure 98/50 95/51 O2 Sat by Pulse Oximetry 100 100 Laboratory Results - last 24 hr 04/16/19 04/16/19 04/16/19 17:52 17:55 18:55 WBC 7.47 RBC 3.71 L Hgb 10.9 L Hct 33.0 L MCV 88.9 MCH 29.4 MCHC 33.0 RDW Std Deviation 13.9 Plt Count 147 MPV 11.6 H Immature Gran % (Auto) 0.0 Neut % (Auto) 77.5 H Lymph % (Auto) 15.0 L Jerome % (Auto) 6.3 Eos % (Auto) 0.9 Baso % (Auto) 0.3 Immature Gran # (Auto) 0.00 Neut # (Auto) 5.79 Lymph # (Auto) 1.12 L Jerome # (Auto) 0.47 Eos # (Auto) 0.07 Baso # (Auto) 0.02 Specimen Type ARTERIAL Sample Site R RADIAL pH 7.42 pCO2 33 L pO2 114 H HCO3 23.0 Base Excess -2.5 Oxyhemoglobin 96.3 ABG O2 Sat (Calculated) 14.8 L ABG O2 Saturation 99.3 ABG Carboxyhemoglobin 1.70 ABG Methemoglobin 1.4 Priyank Test YES A-a O2 Difference 44.0 Total Hemoglobin 10.8 L Lactate 0.90 Liter Flow 2.0 Blood Gas Modality CANNULA FiO2 % 28.0 Sodium Potassium Chloride Carbon Dioxide Anion Gap BUN Creatinine Estimated GFR/1.73 m2 BUN/Creatinine Ratio Glucose POC Glucose 125 H Calculated Osmolality Calcium Total Bilirubin AST ALT Alkaline Phosphatase Creatine Kinase Troponin T Total Protein Albumin Globulin Albumin/Globulin Ratio Urine Source Urine Color Urine Turbidity Urine pH Ur Specific [place] Urine Protein Ur Glucose (Stick) Ur Ketones (Stick) Urine Blood Urine Nitrite Urine Bilirubin Urobilinogen Dipstick Urine Leukocytes Urine WBC (Auto) Urine RBC (Auto) U Epithel Cells (Auto) Urine Bacteria (Auto) 04/16/19 04/16/19 04/16/19 18:55 18:55 20:10 WBC RBC Hgb Hct MCV MCH MCHC RDW Std Deviation Plt Count MPV Immature Gran % (Auto) Neut % (Auto) Lymph % (Auto) Jerome % (Auto) Eos % (Auto) Baso % (Auto) Immature Gran # (Auto) Neut # (Auto) Lymph # (Auto) Jerome # (Auto) Eos # (Auto) Baso # (Auto) Specimen Type Sample Site pH pCO2 pO2 HCO3 Base Excess Oxyhemoglobin ABG O2 Sat (Calculated) ABG O2 Saturation ABG Carboxyhemoglobin ABG Methemoglobin Priyank Test A-a O2 Difference Total Hemoglobin Lactate Liter Flow Blood Gas Modality FiO2 % Sodium 138 Potassium 3.1 L Chloride 104 Carbon Dioxide 20 L Anion Gap 14 BUN 29 H Creatinine 1.7 H Estimated GFR/1.73 m2 29 BUN/Creatinine Ratio 17 Glucose 106 H POC Glucose Calculated Osmolality 282 Calcium 7.8 L Total Bilirubin 1.08 H AST 15 ALT 5 L Alkaline Phosphatase 54 Creatine Kinase 45 Troponin T < 0.010 Total Protein 5.5 L Albumin 3.3 L Globulin 2.2 Albumin/Globulin Ratio 1.5 Urine Source CLEAN CATCH Urine Color YELLOW Urine Turbidity HAZY Urine pH 5.0 Ur Specific [place] 1.009 Urine Protein NEGATIVE Ur Glucose (Stick) NEGATIVE Ur Ketones (Stick) NEGATIVE Urine Blood NEGATIVE Urine Nitrite NEGATIVE Urine Bilirubin NEGATIVE Urobilinogen Dipstick NORMAL Urine Leukocytes MODERATE A Urine WBC (Auto) TNTC A Urine RBC (Auto) <10 U Epithel Cells (Auto) <10 Urine Bacteria (Auto) 2+ Orders Category Date Time Status CHEST-2 VIEWS [RAD] Stat Exams 04/16/19 18:[address] HEAD W/O CONTRAST [CT] Stat Exams 04/16/19 18:02 Completed ABG [RESP] Routine Lab 04/16/19 17:52 Completed CBC WITH ELECTRONIC DIFF [HEME] Stat Lab 04/16/19 18:55 Completed CK PROFILE [SP CHEM] Stat Lab 04/16/19 18:55 Completed COMPREHENSIVE METABOLIC PANEL [CHEM] Stat Lab 04/16/19 18:55 Completed TROPONIN T Stat Lab 04/16/19 18:55 Completed UA [URINALYSIS W/POSS RFLX CULT] [URINALYSIS] Stat Lab 04/16/19 20:10 Completed 0.9% Sodium Chloride Inj [Ns] 1,000 ml Med 04/16/19 20:48 Active IV 999 mls/hr Nitrofurantoin Jerome/Macrocryst [Macrobid] Med 04/16/19 20:49 Discontinued 100 mg PO NOW ONE EKG [EKG] Stat Ther 04/16/19 18:02 Ordered A/P: UTI, ANGELICA, AMS possible due to drug SE. Vitals stable. pts family would like pt admitted for observation. Result Diagrams: 04/16/19 18:55 04/16/19 18:55 - EKG 1 Time of EKG reading by physician:: 17:55 EKG Read and Signed by:: Javier Black EKG Interpretation (*Must complete 3 of following elements*): Normal Rate: 69 Rhythm: nsr [place]: normal QRS: normal MO Interval: normal ST Wave: normal - XRAY 1 XRAY Study: Chest Impression: Normal ([facility] - [address], [address], [place] [address] [place] [address] Department of Imaging Patient: CUBA MORRISONDM Date: 04/16/19MR#: [id number] : 1945DM Status: PRE ERAcct#: [id number] Age/Sex: 73/FRoom/Bed: Loc: ED Ordering Physician: Javier Black MD Family Physician: None,PCP Reason for Procedure: ams ___ Signed EXAM: CHEST-2 VIEWS HISTORY: ams TECHNIQUE: Chest two views COMPARISON: 02/11/2019 FINDINGS: The lungs are well expanded. The heart is not enlarged. The vessels are not distended. There are no infiltrates. No pleural effusions. IMPRESSION: No acute abnormality. Electronically signed by Catracho Arango 04/16/2019 7:22 PM 04/16/191921 Interpreting Physician: Catracho Arango MD Dictated Date/Time: 04/16/191920 cc: Javier Black MD; None,PCP) - CT/MRI 1 CT Study: Head Impression: Abnormal ([facility] - [address] [facility], [address], [place] [address] [place] [address] Department of Imaging Patient: CUBA MORRISONDM Date: 04/16/19MR#: [id number] : 1945 Status: PRE ERAcct#: [id number] Age/Sex: 73/FRoom/Bed: Loc: ED Ordering Physician: Javier Black MD Family Physician: None,PCP Reason for Procedure: ams Signed EXAM: CT HEAD W/O CONTRAST HISTORY: ams TECHNIQUE: CT head without contrast COMPARISON: 12/26/2018 FINDINGS: No parenchymal hemorrhage. No epidural or subdural hematoma. No subarachnoid hemorrhage. There are chronic microvascular ischemic changes. No mass identified on this noncontrasted exam. No hydrocephalus. No sinus opacification. IMPRESSION: No hemorrhage. Chronic microvascular ischemic changes.. This exam was performed using automated exposure control, adjustment of mA or kV according to patient size, and/or use of iterative reconstruction technique. Electronically signed by Catracho Arango 04/16/2019 7:21 PM 04/16/191920 Interpreting Physician: Catracho Arango MD Dictated Date/Time: 04/16/191919 cc: Javier Black MD; None,PCP) - CONSULTS/PCP/HOSPITALIST Notification #1 *Consult/PCP/Hospitalist*: dr dong Time Discussed: 21:06 Consult Disposition: Admit Departure - Departure Date of Disposition Decision: 04/16/19 Time of Disposition Decision: 21:04 DIAGNOSIS: UTI (urinary tract infection), Altered mental status, ANGELICA (acute kidney injury) Disposition: ADMITTED INPATIENT 09 Certified Medical Emergency: Emergent Condition: Stable Additional Freetext Instructions: We have examined and treated you today on an emergency basis only. This was not a substitute for, or an effort to provide, complete medical care. In most cases, you must let your doctor check you again. Tell your doctor about any new or lasting problems. We cannot recognize and treat all injuries or illnesses in one Emergency Department visit. If you had special tests, such as X-rays or CT scans, will be reviewed by radiologist and will call you if there are any new suggestions Follow up with primary care provider in 1 to 2 days if no improvement. If you do not have a primary care provider, you need to choose one as soon as possible. Take medicines as prescribed. Monitor for any side effects or adverse events from medications. If any side effect, adverse event or rash develops, or if you suspect any other adverse reaction to the medication, then discontinue the medication immediately and contact clinic /PCP or go to the nearest ER. Narcotic meds / sedative meds instruction - patent advised not to drive, operate any machinery or go into water after taking meds as it may impair mental ability to react to the situation in an appropriate manner . Continue other current medicines. Follow up with PCP within 24-48 hours, or sooner if symptoms worsen or fail to improve. Patient / guardian verbalizes understanding of treatment plan, medication, and side effects and agrees with treatment plan. Patient leaves ER in stable condition and ambulatory state. Return to ER as needed. Discharge instructions reviewed verbally and given to patient in written form. Follow up with primary care provider. Referrals and Follow-Ups: None,PCP [NON-STAFF PROVIDER] - - Critical Care Note This patient required my direct & personal management of CC.: No Attestation - Physician/ TAL Attestation Patient care was provided by Advanced Practice Provider:: No The physician spent face to face time with patient:: Yes Advanced Practice Provider documentation review:: Supervising physician onsite and consulted in the evaluation and care of this patient. The physician did have a face to face encounter with the patient.
--- NOTE | 2019-04-16 19:23 | Diag Imaging Result Doc PS360 ---
EXAM: CT HEAD W/O CONTRAST HISTORY: ams TECHNIQUE: CT head without contrast COMPARISON: 12/26/2018 FINDINGS: No parenchymal hemorrhage. No epidural or subdural hematoma. No subarachnoid hemorrhage. There are chronic microvascular ischemic changes. No mass identified on this noncontrasted exam. No hydrocephalus. No sinus opacification. IMPRESSION: No hemorrhage. Chronic microvascular ischemic changes.. This exam was performed using automated exposure control, adjustment of mA or kV according to patient size, and/or use of iterative reconstruction technique. Electronically signed by Catracho Arango 04/16/2019 7:21 PM
--- NOTE | 2019-04-16 19:24 | Diag Imaging Result Doc PS360 ---
EXAM: CHEST-2 VIEWS HISTORY: ams TECHNIQUE: Chest two views COMPARISON: 02/11/2019 FINDINGS: The lungs are well expanded. The heart is not enlarged. The vessels are not distended. There are no infiltrates. No pleural effusions. IMPRESSION: No acute abnormality. Electronically signed by Catracho Arango 04/16/2019 7:22 PM
[2019-04-16 19:31] LABS: BASO# 0.02 X1000 (0.0-0.2); BASO% 0.3 % (0.0-0.8); EOS# 0.07 X1000 (0.0-0.7); EOS% 0.9 % (0.0-10.0); HEMOGLOBIN 10.9 g/dL (12.0-16.0); LYMPH# 1.12 X1000 (1.2-3.4); MCH 29.4 PG (27-31); MCV 88.9 FL (81-99); MONO# 0.47 X1000 (0.11-0.59); MONO% 6.3 % (1.7-9.3); MPV 11.6 FL (7.4-10.4); NEUT# 5.79 X1000 (1.4-6.5); NEUT% 77.5 % (42.2-75.2); PLT 147 X1000 (130-400); RBC 3.71 XMIL (4.2-5.4); RDW 13.9 % (11.5-14.5); WBC 7.47 X1000 (4.8-10.8)
[2019-04-16 19:45] LABS: CALCIUM 7.8 mg/dL (8.8-10.2); TOTAL BILIRUBIN 1.08 mg/dL (0.20-1.00); TOTAL PROTEIN 5.5 g/dL (6.3-8.3)
[2019-04-16 19:46] LABS: ALB/GLOB RATIO 1.5; ALBUMIN 3.3 g/dL (3.5-5.0); CREATININE 1.7 mg/dL (0.5-0.9); POTASSIUM 3.1 mmol/L (3.5-5.1)
[2019-04-16 20:21] LABS: URINE SOURCE CLEAN CATCH
[2019-04-16 20:34] LABS: BILIRUBIN URINE NEGATIVE (NEGATIVE); BLOOD URINE NEGATIVE (NEGATIVE); COLOR YELLOW; GLUCOSE URINE NEGATIVE (NEGATIVE); KETONE URINE NEGATIVE (NEGATIVE); LEUKOCYTES URINE MODERATE (NEGATIVE); NITRITE URINE NEGATIVE (NEGATIVE); PROTEIN URINE NEGATIVE (NEGATIVE); SP GRAVITY URINE 1.009; TURBIDITY URINE HAZY (CLEAR); UR EPITHELIAL CELLS <10 /HPF (<10); URINE BACTERIA 2+ /HPF; URINE RBC <10 /HPF (<10); URINE WBC TNTC /HPF (<10); UROBILINOGEN URINE NORMAL (NORMAL)
[2019-04-16] MEDS ORDERED: NS 1,000 ML IV ONE (20:48)
[2019-04-16] MEDS ORDERED: MACROBID PO ONE (20:49)
--- NOTE | 2019-04-16 22:33 | HISTORY AND PHYSICAL ---
PRIMARY CARE PHYSICIAN: Dr. Goldman. CHIEF COMPLAINT: Altered mental status and passed out. HISTORY OF PRESENTING ILLNESS: A 73-year-old female with a history of major depression, multiple sclerosis, dementia, hypertension, atrial fibrillation who apparently had an episode where she passed out. As per family members, she was not eating or drinking well. She has been depressed. She was evaluated in the emergency department. She seemed dehydrated. She was given IV fluids, and it was thought that we will place her for observation for further evaluation and management. At the time of my examination, patient was more alert. She denied any headache, fever, chills, chest pain, shortness of breath but complained of being sad and not feeling well. PAST MEDICAL HISTORY: Includes atrial fibrillation, CHF, hypertension, dementia, multiple sclerosis, depression and hypothyroidism. PAST SURGICAL HISTORY: Bilateral knee surgery/replacement, left wrist surgery, cataract surgery. ALLERGIES: Amoxicillin and Bactrim. CURRENT MEDICATIONS: Include Eliquis 5 mg p.o. b.i.d., Abilify 5 mg p.o. q.a.m., aspirin 81 mg p.o. daily, Lasix 20 mg p.o. daily, interferon beta 1B as directed, Prevacid 50 mg p.o. daily, levothyroxine 12.5 mg p.o. daily, losartan/hydrochlorothiazide 100/25 one p.o. daily, metoprolol 50 mg p.o. t.i.d., Crestor 10 mg p.o. at bedtime, Geodon 60 mg p.o. b.i.d. SOCIAL HISTORY: She is a former smoker. No history of alcohol or illicit drug use. FAMILY HISTORY: No history of coronary disease. REVIEW OF SYSTEMS: Fourteen-point review of systems as listed in HPI. Other systems negative. PHYSICAL EXAMINATION: GENERAL: Cooperative, friendly female. She is resting comfortably now. VITAL SIGNS: Temperature 97 degrees, pulse 68, respirations 18, blood pressure 92/47. HEENT: Atraumatic, normocephalic. Extraocular movements intact. PERRLA. NECK: No masses. CHEST: Clear to auscultation. CARDIOVASCULAR: Regular rate and rhythm. ABDOMEN: Soft. Positive bowel sounds. EXTREMITIES: No edema. NEUROLOGIC: She is awake, alert, oriented x3. GENITOURINARY: No bladder distention. SKIN: Warm. LABORATORIES AND STUDIES: WBC 7.47, hemoglobin 10.9, hematocrit 32.0, platelets 147,000. Sodium 138, potassium 3.1, chloride 104, CO2 is 20, BUN is 29, creatinine is 1.7, glucose 106. Urine shows moderate leukocytes and +[address]: Negative. Chest x-ray: Negative. ASSESSMENT: A 73-year-old female with a history of atrial fibrillation, congestive heart failure, hypertension, dementia and multiple sclerosis who had presented to emergency department after she had an episode where she became altered and confused and also passed out. Apparently, she was not eating or drinking well for the past several days. She was evaluated in the emergency department. The patient seemed clinically dehydrated due to her presenting symptoms. We will place him for observation for further management. ASSESSMENT: 1. Altered mental status multifactorial. 2. Dehydration. 3. Suspected urinary tract infection. 4. Acute kidney injury. 5. Multiple sclerosis. 6. Hypertension. 7. Depression PLAN: 1. We will admit patient to medical floor with telemetry. 2. Continue with neuro checks. 3. Continue with IV fluid hydration. 4. We will start patient on empiric antibiotics and check urine cultures. 5. Monitor renal function closely. 6. We will restart home medications. 7. We will continue to monitor her blood pressure closely. 8 Will review previous records of psychiatry hospitalization. 9. Patient is already on Eliquis and this will suffice for DVT prophylaxis. 10. We will continue to follow and reassess. Make further recommendation based on patient's clinical course. cc: Rigo Ag MD MTDD
[2019-04-17] MEDS: NS 1,000 ML IV SCH ×2 (00:33→09:59)
[2019-04-17] MEDS: ROCEPHIN 1 GM in NS 50 ML IV SCH ×2 (00:33→18:14)
[2019-04-17] MEDS: SYNTHROID PO SCH (06:10)
[2019-04-17] MEDS: PRILOSEC PO SCH (06:10)
--- NOTE | 2019-04-17 06:51 | EKG Report ---
Test Performed on : 04/16/2019 5:51:07 PM Test Reason : AMS Blood Pressure : / mmHG Vent. Rate : 069 BPM Atrial Rate : 069 BPM P-R Int : 192 ms QRS Dur : 090 ms QT Int : 472 ms P-R-T Axes : 057 027 034 degrees QTc Int : 505 ms Normal sinus rhythm. Low voltage QRS Borderline ECG When compared with ECG of 12-JAN-2019 12:57, Nonspecific T wave abnormality now evident in Inferior leads Nonspecific T wave abnormality now evident in Anterior leads Unconfirmed Result
[2019-04-17 08:26] LABS: BASO# 0.02 X1000 (0.0-0.2); BASO% 0.4 % (0.0-0.8); EOS# 0.17 X1000 (0.0-0.7); EOS% 3.5 % (0.0-10.0); HEMATOCRIT 32.9 % (37.0-47.0); HEMOGLOBIN 10.8 g/dL (12.0-16.0); LYMPH# 1.23 X1000 (1.2-3.4); LYMPH% 25.1 % (20.5-51.1); MCHC 32.8 g/dL (33-37); MCV 88.2 FL (81-99); MONO# 0.45 X1000 (0.11-0.59); MONO% 9.2 % (1.7-9.3); MPV 11.7 FL (7.4-10.4); NEUT# 3.03 X1000 (1.4-6.5); NEUT% 61.8 % (42.2-75.2); PLT 148 X1000 (130-400); RBC 3.73 XMIL (4.2-5.4); RDW 13.7 % (11.5-14.5)
[2019-04-17 08:53] LABS: CALCIUM 7.9 mg/dL (8.8-10.2); CREATININE 1.2 mg/dL (0.5-0.9); POTASSIUM 2.7 mmol/L (3.5-5.1)
[2019-04-17] MEDS ORDERED: LASIX PO SCH (09:00)
[2019-04-17] MEDS: ELIQUIS PO SCH ×2 (09:54→21:18)
[2019-04-17] MEDS: DETROL LA PO SCH (09:55)
[2019-04-17] MEDS: ASPIRIN EC PO SCH (09:55)
[2019-04-17] MEDS: ABILIFY PO SCH (09:56)
[2019-04-17] MEDS: GEODON PO SCH ×2 (09:57→16:56)
[2019-04-17] MEDS ORDERED: NS 1,000 ML IV SCH (17:27)
--- NOTE | 2019-04-17 18:06 | PROGRESS NOTE ---
DATE: 04/17/2019 SUBJECTIVE: Ms. Casarez was admitted yesterday. Altered mental status. She passed out. She is a patient of Dr. Goldman. A 73-year-old female with history of major depression, multiple sclerosis, dementia, hypertension, atrial fibrillation. Apparently had an episode where she passed out. Family members said she was not eating or drinking. She had been depressed. Was evaluated in the emergency department. Seemed dehydrated. Given some IV fluids and be good to observe her. She denies any complaints this morning. Wants to go home, but she has really not been out of bed and when she has tried to get out of bed, she has been very weak even to get to the bedside commode. Once again on review. PAST MEDICAL HISTORY: 1. Atrial fibrillation. 2. Congestive heart failure. 3. Hypertension. 4. Dementia. 5. Multiple sclerosis. 6. Depression. 7. Hypothyroidism. PAST SURGICAL HISTORY: Bilateral knee surgery placement, left wrist surgery, cataract surgery. ALLERGIES: Allergic to amoxicillin and Bactrim. PHYSICAL EXAMINATION: Today, afebrile 97.9 degrees, pulse 93, respirations 18, blood pressure 127/54. Pupils are equal and round. Lungs are clear in all lung grier.Cardiovascular: Regular rhythm and rate without murmur or S3. Urine output: 2000 mL. DIAGNOSTIC STUDIES: Review of lab from yesterday, white count 4900, hematocrit 32, hemoglobin 10, platelet count 148,000. Sodium 140, potassium 2.7, chloride 107 BUN 23, creatinine 1.2 has come down from 1.7. Urinalysis was too numerous to count white blood cells, 2+ bacteria. Blood gases when she arrived, pH was 7.42, pCO2 was 33, PO2 of 114, O2 saturations were 96%. Chest x-ray: No acute abnormality. Head CT without contrast: No hemorrhage. Chronic microvascular ischemic changes. On review of her medications from home, she is on Eliquis 2 mg b.i.d., Abilify 5 mg daily, aspirin 81 mg a day, Lasix 20 mg a day, interferon beta 1B, takes 0.36 mg subcutaneous every other day, Prevacid 15 mg a day, levothyroxine 12.5 mg daily, losartan/hydrochlorothiazide 100/25 q.a.m., Lopressor 50 mg b.i.d., Crestor 10 mg at bedtime, tolterodine tartrate ER 4 mg daily, Geodon 60 mg with breakfast. ASSESSMENT AND PLAN: 1. Syncopal episode. We will continue her current medication. We have given her a little bit of fluids. I think we will stop her Lasix and see how she does with volume. We are treating her for possible urinary tract infection, although she really did not give a history of symptoms. 2. Acute kidney injury. That is better with fluids. 3. History of hypothyroidism. She is just on a mild dose of Synthroid. We will get Physical Therapy to evaluate and see how we do. She wants to go home, but I want to make sure she can ambulate. cc: Priyank Fuller MD MTDD
[2019-04-17] MEDS ORDERED: PATIENT'S OWN MED SUBQ ONE (21:00)
[2019-04-17] MEDS: CRESTOR PO SCH (21:18)
[2019-04-17] MEDS: KLOR-CON PO SCH (21:18)
[2019-04-18] MEDS: SYNTHROID PO SCH (06:47)
[2019-04-18 08:10] LABS: AGAP 15; BUN 10 mg/dL (8-22); CALCIUM 8.6 mg/dL (8.8-10.2); CHLORIDE 107 mmol/L (98-107); COSMO 286; CREATININE 0.8 mg/dL (0.5-0.9); ESTIMATED GFR > 60; GLUCOSE 107 mg/dL (70-104); MAGNESIUM 1.4 mg/dL (1.5-2.7); SODIUM 144 mmol/L (136-145); TCO2 22 mmol/L (25-35)
[2019-04-18 08:11] LABS: FREE T4 1.52 ng/dL (0.93-1.70); TSH 0.95 uIUmL (0.27-4.20)
[2019-04-18] MEDS: ELIQUIS PO SCH ×2 (08:52→22:25)
[2019-04-18] MEDS: ASPIRIN EC PO SCH (08:52)
[2019-04-18] MEDS: KLOR-CON PO SCH ×2 (08:52→22:25)
[2019-04-18] MEDS: GEODON PO SCH ×2 (08:52→17:02)
[2019-04-18] MEDS: PRILOSEC PO SCH (08:52)
[2019-04-18] MEDS: ABILIFY PO SCH (08:52)
[2019-04-18] MEDS: DETROL LA PO SCH (09:40)
--- NOTE | 2019-04-18 10:50 | DISCHARGE SUMMARY ---
ADMISSION DATE: 04/16/2019 DISCHARGE DATE: 04/18/2019 HISTORY OF PRESENT ILLNESS: This is a patient of Dr. Sue Goldman. She came in with altered mental status. A 73-year-old female with a history of major depression, multiple sclerosis, dementia, hypertension, atrial fibrillation. Apparently had an episode where she passed out. As per family member, she was not eating and drinking well. She had been depressed. Was evaluated in the emergency department and seemed dehydrated. Given some IV fluids and placed her for observation management. At the time of examination, the patient was more alert. Denied headache, fever, chills, chest pain, shortness of breath. She has not had any more spells. Blood pressure appears to remain well-controlled. It is between 103-137/46-64. She wants to go home. No focal neurologic deficits. REVIEW OF HER LAB: Unremarkable. HOSPITAL COURSE: She did complain of some bladder spasms. Her creatinine was 1.2 on presentation. After fluids, it was 0.8 and so felt she could go home. She has not gotten out of bed much but she says she can do that at home. Would recommend home health. We did treat her for possible urinary tract infection. She really was asymptomatic but urine had too numerous to count white blood cells. DISCHARGE ORDERS: Keep her on Eliquis 5 mg b.i.d., Abilify 5 mg q.a.m., aspirin 81 mg a day. She gets interferon beta 1-B 0.3 mg subcutaneously every other day, Synthroid 12 mcg daily, Prilosec 20 mg a day, Klor-Con 40 mEq b.i.d., Crestor 10 mg at bedtime, Detrol LA 4 mg daily, Geodon 60 mg with supper and then 60 mg with breakfast. She can be discharged home. cc: Priyank Fuller MD
[2019-04-18] MEDS: ROCEPHIN 1 GM in NS 50 ML IV SCH ×2 (17:03→17:54)
[2019-04-18] MEDS: CRESTOR PO SCH (22:25)
[2019-04-19] MEDS: SYNTHROID PO SCH (05:54)
[2019-04-19] MEDS: PRILOSEC PO SCH ×2 (05:55→06:00)
[2019-04-19] MEDS ORDERED: PATIENT'S OWN MED SUBQ SCH (09:00)
--- NOTE | 2019-04-19 09:53 | Diag Imaging Result Doc PS360 ---
EXAM: US RENAL 2 (RETROPER) COMPLETE 04/19/2019 HISTORY: UTI, urinary retention TECHNIQUE: Renal ultrasound COMMENT: The right kidney is 11.1 x 4.2 x 4.7 cm the left is 11.3 x 3.5 x 5.5 cm. There is no evidence of hydronephrosis. There is a 2.9 cm cyst in the lower pole of the right kidney and a 3.7 cm cyst in the upper pole of the left kidney. There is a Galo catheter in the bladder. IMPRESSION: No evidence of obstructive uropathy. Electronically signed by Austyn Nelson 04/19/2019 9:50 AM
[2019-04-19] MEDS: ABILIFY PO SCH (10:05)
[2019-04-19] MEDS: ELIQUIS PO SCH ×2 (10:05→20:19)
[2019-04-19] MEDS: KLOR-CON PO SCH ×2 (10:05→20:19)
[2019-04-19] MEDS: ASPIRIN EC PO SCH (10:05)
[2019-04-19] MEDS: GEODON PO SCH ×2 (10:05→17:36)
[2019-04-19] MEDS: DETROL LA PO SCH (10:06)
--- NOTE | 2019-04-19 12:50 | PROGRESS NOTE ---
DATE: 04/19/2019 SUBJECTIVE: Ms. Casarez says she feels better and less pain. We put a Galo catheter in her. She had over 800 mL of residual bladder distention yesterday. OBJECTIVE: Temperature 98.1 degrees, pulse 111, respirations 18, and blood pressure 132/62. Pupils are equal and round. Lungs are clear anterolateral and posterior. Cardiovascular regular rhythm and rate without murmur or S3. Abdomen is soft. Skin is warm and dry. Renal ultrasound no evidence of obstructive uropathy. Right kidney 11 x 4 x 4, left kidney 11 x 3.5 x 5.5. No evidence of hydronephrosis. ASSESSMENT AND PLAN: 1. She presented with a syncopal episode. Aware. Volume status looks good. 2. Acute kidney injury. Renal function looks like it is improved. Creatinine is 0.8. 3. Hypokalemia. We will give her some potassium. 4. History of multiple sclerosis. 5. General weakness and deconditioning. 6. Continue her home medications. I assume this is for schizophrenia. She is on Geodon. She does have history of depression. cc: Priyank Fuller MD
--- NOTE | 2019-04-19 14:39 | CONSULTATION ---
PROCEDURE DATE: 04/19/2019 ATTENDING AND REFERRING PHYSICIAN: Dr. Fuller. HISTORY OF PRESENT ILLNESS: This 73-year-old female was admitted with a history of a syncopal episode. The patient has some psychiatric problems and multiple sclerosis. The patient was going to be discharged, but had a bladder scan with over 999 mL in her bladder. The patient is on Detrol LA for some other bladder problems. The patient has a very remote history of placement of a mid urethral sling. She also had laparoscopic unroofing of a large right renal cyst in 2013. She states she has significant problems with constipation. She has a history of kidney stones and is status post left extracorporeal shockwave lithotripsy in 2016. She states currently she feels well. She has an indwelling Galo catheter. A renal ultrasound earlier today revealed normal renal collecting systems bilaterally. There was a small cyst in each kidney. PAST MEDICAL HISTORY: Multiple sclerosis, gastroesophageal reflux disease, anxiety history of auditory hallucinations, coronary artery disease with history of atrial fibrillation, hypertension, hypothyroidism. CURRENT MEDICATIONS: Documented on the chart and include Detrol LA, as well as Geodon. PAST SURGICAL HISTORY: Left extracorporeal shockwave lithotripsy. Mid urethral sling placement. Bilateral cataract surgery. Bilateral knee replacements. Left wrist surgery. Laparoscopic unroofing of the right renal cyst. SOCIAL HISTORY: Previous cigarette use. No cigarettes in several years. No alcohol use. ALLERGIES: She is allergic to amoxicillin and sulfa drugs. REVIEW OF SYSTEMS: She states she feels well at present. She states she does have weakness. She states she has problems with constipation, but at present has very loose stools. She denies any problems with strokes or seizures or recent chest pains. She has had no recent pulmonary problems. PHYSICAL EXAMINATION: General: A normally developed, well-nourished, age apparent white female, who is cooperative. HEENT: Normal for age. Lungs: Clear. Cardiovascular: Regular rate and rhythm with systolic murmur. Abdomen: Protuberant, soft, nontender. No hepatosplenomegaly or masses. Normal bowel sounds. : Normal external female with Galo catheter in place. The patient has had a bowel movement and there is stool all around the Galo catheter. No adnexal masses or tenderness bilaterally. The bladder is palpably normal. The Galo balloon is palpable at the trigone of the bladder. Extremities: No clubbing, cyanosis, or edema. Neuro: No focal deficits. LABORATORY EVALUATION: Has a white count of 4.9, hemoglobin 10.8, hematocrit of 32.9. Serum sodium is 144, potassium 3.0, chloride 107, bicarbonate 22. BUN 10, creatinine 0.8. A urine culture obtained 2 days ago was no growth. Postvoid residual scan was greater than 999. A Galo catheter was placed. Renal ultrasound from today had a 2.9 cm cyst in the lower pole right kidney, a 3.7 cyst in the upper pole of the left kidney. The Galo catheter was visualized in the bladder. There was no hydronephrosis. IMPRESSION: 1. Urinary retention with no evidence of hydronephrosis on ultrasound. 2. Multiple sclerosis. This can be associated with an overactive bladder, urinary retention, or not affecting the bladder in any way. 3. Medications can certainly cause urinary retention and constipation. She is on 2 medications that are associated with this, being Detrol LA and Geodon that she needs to continue taking. 4. Constipation. RECOMMENDATIONS: 1. Keep Galo catheter at least 1 week since she was very over distended. 2. Stop Detrol LA. 3. I have asked the nursing service to check her diaper often to keep stool away from the Galo catheter. Thank you for this consultation. cc: Yeison Hernadez MD
[2019-04-19] MEDS: POTASSIUM CHLORIDE 20 MEQ/SWI 20 MEQ/100 ML IVPB IV SCH ×2 (17:35→20:21)
[2019-04-19] MEDS: ROCEPHIN 1 GM in NS 50 ML IV SCH (17:36)
[2019-04-19] MEDS: PATIENT'S OWN MED SUBQ SCH (20:19)
[2019-04-19] MEDS: CRESTOR PO SCH (20:19)
[2019-04-20] MEDS: PRILOSEC PO SCH ×2 (05:52→06:00)
[2019-04-20] MEDS: SYNTHROID PO SCH (05:52)
[2019-04-20] MEDS: ASPIRIN EC PO SCH (08:32)
[2019-04-20] MEDS: KLOR-CON PO SCH ×2 (08:33→20:12)
[2019-04-20] MEDS: GEODON PO SCH ×2 (08:33→16:49)
[2019-04-20] MEDS: ELIQUIS PO SCH ×2 (08:33→20:12)
[2019-04-20] MEDS: ABILIFY PO SCH (08:33)
--- NOTE | 2019-04-20 12:04 | PROGRESS NOTE ---
DATE: 04/20/2019 SUBJECTIVE: Ms. Casarez is depressed that she is not getting to go home. She has a Galo catheter in. OBJECTIVE: Vital Signs: Temperature 97.8 degrees, pulse 85, respirations 18, blood pressure 124/56. Eyes: Pupils are equal and round. Lungs: Clear in all lung grier. Cardiovascular exam: Regular rhythm and rate without murmur or S3. : Urine output is 2400 mL. ASSESSMENT AND PLAN: 1. Urinary retention. Suspect from multiple sclerosis. No evidence of hydronephrosis on ultrasound. 2. Multiple sclerosis associated with overactive bladder, urinary retention or it can affect it in no way, but appears to have urinary retention. 3. Medications continue to work with gastrointestinal regimen. She is having loose stools. She is on 2 medications associated with urinary retention; 1 is Detrol LA and the other is Geodon. 4. General weakness. Not able to ambulate without a lot of assistance. She really wants to go home, but I do not feel she is ready. Continue physical therapy. We will get Social Service involved. REVIEW OF ORDERS: On Eliquis 5 mg b.i.d., Abilify 5 mg q.a.m., aspirin 81 mg a day, Synthroid 12.5 mg daily, Prilosec 20 mg daily, potassium chloride 40 mEq p.o. b.i.d., ceftriaxone 1 g IV q. 24 hours, Crestor 10 mg p.o. at bedtime, and getting Geodon 60 mg twice a day. cc: Priyank Fuller MD
[2019-04-20] MEDS: ROCEPHIN 1 GM in NS 50 ML IV SCH (18:14)
[2019-04-20] MEDS: CRESTOR PO SCH (20:12)
[2019-04-21] MEDS: SYNTHROID PO SCH (05:49)
[2019-04-21] MEDS: PRILOSEC PO SCH ×3 (05:50→06:25)
[2019-04-21] MEDS: ASPIRIN EC PO SCH (09:44)
[2019-04-21] MEDS: GEODON PO SCH ×2 (09:44→17:05)
[2019-04-21] MEDS: ELIQUIS PO SCH ×2 (09:45→21:01)
[2019-04-21] MEDS: ABILIFY PO SCH (09:45)
[2019-04-21] MEDS: KLOR-CON PO SCH ×2 (09:46→21:01)
[2019-04-21] MEDS: PATIENT'S OWN MED SUBQ SCH ×2 (14:38→16:38)
--- NOTE | 2019-04-21 17:25 | PROGRESS NOTE ---
DATE: 04/21/2019 SUBJECTIVE: The son was there. She does feel stronger. She has been doing exercises, but she is not able to ambulate without assistance. Galo catheter is still in place. She does feel better. She is anxious to go home, but explained that she is going to need some help, and I think she needs to pursue rehabilitation. I think she would like to go to [facility]; it is close to home. OBJECTIVE: Vital signs stable. Lungs are clear in all lung grier. Cardiovascular: Regular rhythm and rate without murmur or S3. Abdomen is soft. Skin is warm and dry. ASSESSMENT AND PLAN: Her catheter still in place. Will need to keep it in for a week. I think we need to pursue rehabilitation. She has underlying MS and urinary retention, treating her for a bladder distention and presented with what looked like pneumonia. She is very weak and had been falling frequently, and her son is not able to care for her right now. cc: Priyank Fuller MD
[2019-04-21] MEDS: ROCEPHIN 1 GM in NS 50 ML IV SCH (18:02)
[2019-04-21] MEDS: CRESTOR PO SCH (21:01)
[2019-04-22] MEDS: SYNTHROID PO SCH (06:00)
[2019-04-22] MEDS: PRILOSEC PO SCH (06:01)
[2019-04-22] MEDS: ELIQUIS PO SCH ×2 (10:18→20:09)
[2019-04-22] MEDS: GEODON PO SCH ×2 (10:18→18:34)
[2019-04-22] MEDS: ASPIRIN EC PO SCH (10:18)
[2019-04-22] MEDS: KLOR-CON PO SCH ×2 (10:18→20:09)
[2019-04-22] MEDS: ABILIFY PO SCH (10:18)
--- NOTE | 2019-04-22 18:26 | PROGRESS NOTE ---
DATE: 04/22/2019 SUBJECTIVE: Ms. Casarez feels a little better I think today. She is still wanting to go home, but she knows she is weak, cannot walk without assistance. Has her Galo catheter in. OBJECTIVE: Vital Signs: Temperature 97.3 degrees, pulse 103, respirations 18, blood pressure 129/63. Eyes: Pupils are equal and round. Lungs: Clear in all lung grier. Cardiovascular: Regular rhythm and rate without murmur or S3. Abdomen: Soft. Skin: Warm and dry. Urine output is 2700 mL. ASSESSMENT AND PLAN: 1. Multiple sclerosis, with what appears to be possible neurogenic bladder. We did a renal ultrasound on 04/19/2019. No evidence of obstruction. She did have significant retention in her bladder and relief with the Galo catheter. Dr. Alexandre Hernadez had evaluated and felt we ought to keep the catheter in for a week at least. 2. General weakness, unable to ambulate. Once again, I think this is related to being in the bed and multiple sclerosis, so will continue physical therapy. She has reluctantly agreed to pursue rehabilitation. Recently, she want to go to [facility], but she said her sister has cancer and she is in [place], so she is hoping to go to [facility]. At any rate, we are going to pursue going to physical therapy. Continue physical therapy while she is here. 3. She has had some constipation and she is on a bowel regimen I believe for constipation. I am going to put her on MiraLAX and will do that twice a day, 17 g twice a day, and put her on Colace as well, 100 mg twice a day. This may help her bladder function as well. 4. History of hypothyroidism, on Synthroid. 5. We have her on some antibiotics. Urine did not show any growth. Chest x-ray from 04/16/2019 showed no acute abnormality. Note that multiple sclerosis can be associated with overactive bladder and urinary retention, or may not affect the bladder in any way. I think it might be worth getting abdominal KUB and seeing if there is stool in the vault, see if she is constipated, and we will put her on the MiraLAX and Colace. cc: Priyank Fuller MD
[2019-04-22] MEDS: ROCEPHIN 1 GM in NS 50 ML IV SCH (18:35)
[2019-04-22] MEDS: MIRALAX PO SCH (20:08)
[2019-04-22] MEDS: COLACE PO SCH (20:09)
[2019-04-22] MEDS: CRESTOR PO SCH (20:09)
[2019-04-23] MEDS: SYNTHROID PO SCH (06:22)
[2019-04-23] MEDS: PRILOSEC PO SCH (06:22)
[2019-04-23] MEDS: COLACE PO SCH ×2 (08:51→21:36)
[2019-04-23] MEDS: MIRALAX PO SCH ×2 (08:52→21:35)
[2019-04-23] MEDS: ELIQUIS PO SCH ×2 (08:52→21:36)
[2019-04-23] MEDS: ASPIRIN EC PO SCH (08:52)
[2019-04-23] MEDS: KLOR-CON PO SCH (08:52)
[2019-04-23] MEDS: ABILIFY PO SCH (08:52)
[2019-04-23] MEDS: GEODON PO SCH ×2 (08:52→16:49)
[2019-04-23] MEDS: ROCEPHIN 1 GM in NS 50 ML IV SCH (16:49)
[2019-04-23] MEDS ORDERED: MAGNESIUM SULFATE 2 GM/S.W.I. 2 GM/50 ML IVPB IV SCH (17:30)
[2019-04-23 18:19] LABS: AGAP 12; BUN 11 mg/dL (8-22); CALCIUM 9.4 mg/dL (8.8-10.2); CHLORIDE 103 mmol/L (98-107); COSMO 279; CREATININE 0.8 mg/dL (0.5-0.9); ESTIMATED GFR > 60; GLUCOSE 130 mg/dL (70-104); MAGNESIUM 1.9 mg/dL (1.5-2.7); POTASSIUM 4.6 mmol/L (3.5-5.1); SODIUM 139 mmol/L (136-145); TCO2 24 mmol/L (25-35)
--- NOTE | 2019-04-23 18:53 | PROGRESS NOTE ---
DATE: 04/23/2019 SUBJECTIVE: Overnight no acute events. Ms. Casarez is denying any new complaints except that she has been feeling very weak. She did have heart rate between 80 to 107 per minute. Her potassium supplementation has been stopped. She denies any nausea, vomiting, abdominal pain, or cough. She denies any chest pain or shortness of breath. PHYSICAL EXAMINATION: Vital Signs: Suggestive of temperature of 97.6 degrees, pulse 104, respiratory rate 14, blood pressure 135/62, saturating 98% on room air to nasal cannula. General: On physical examination, does not appear in any acute distress. She has urine catheter. Oral cavity is moist. Respiratory: Air entry bilaterally equal. No wheeze, rhonchi, crackles. Cardiovascular: S1, S2 normal. No murmur, rub, or gallop. Abdomen: Soft, nontender. Extremities: No lower extremity edema. Genitourinary: She has urine catheter. LABS: No CBC today. BMP suggestive of normal potassium, normal magnesium, and normal kidney function. Microbiology, urine culture did not have any growth, and ceftriaxone has been stopped. No new imaging today. ASSESSMENT AND PLAN: 1. Suspected syncope, acute encephalopathy, weakness on presentation likely because of volume depletion, which has now resolved. Continue physical therapy. Patient would benefit from going to the rehab pending insurance approval. 2. Multiple sclerosis. Continue patient's home interferon beta therapy. She does not have any spasticity on my examination. She is alert and oriented x3. She should have outpatient neurology evaluation. 3. Acute urinary retention, which could be in the setting of multiple sclerosis. She is on Galo catheter. The plan is to keep it at least until 04/26/2019 and then possibly give her a voiding trial. I will stop intravenous ceftriaxone since her urine culture did not have any growth. 4. History of atrial fibrillation. Currently rate is in acceptable range. Her blood pressure has been in acceptable range, so I will resume her home metoprolol and continue her home Eliquis. EKG has normal sinus rhythm. 5. History of depression and dementia. I will continue her home medication of aripiprazole, ziprasidone. 6. Disposition. We are awaiting insurance approval before we could send her to rehab. Plan of care discussed with the patient. All of her questions have been answered. cc: Jasmeet Oliva MD
[2019-04-23] MEDS: PATIENT'S OWN MED SUBQ SCH (21:36)
[2019-04-23] MEDS: CRESTOR PO SCH (21:36)
--- NOTE | 2019-04-23 22:31 | EKG Report ---
Test Performed on : 04/23/2019 6:27:40 PM Test Reason : Evaluate for tachycardia rhythm Blood Pressure : / mmHG Vent. Rate : 096 BPM Atrial Rate : 096 BPM P-R Int : 172 ms QRS Dur : 082 ms QT Int : 370 ms P-R-T Axes : 118 002 036 degrees QTc Int : 467 ms Normal sinus rhythm. Inferior infarct , age undetermined Abnormal ECG When compared with ECG of 16-APR-2019 17:51, (Unconfirmed) Inferior infarct is now present Nonspecific T wave abnormality no longer evident in Anterior leads Confirmed by Stevan Welch MD ([id number]) on 04/24/2019 4:52:03 PM
[2019-04-24] MEDS: SYNTHROID PO SCH (06:29)
[2019-04-24] MEDS: PRILOSEC PO SCH (06:30)
[2019-04-24 07:39] LABS: AGAP 11; BUN 11 mg/dL (8-22); CHLORIDE 100 mmol/L (98-107); COSMO 270; CREATININE 0.7 mg/dL (0.5-0.9); ESTIMATED GFR > 60; GLUCOSE 114 mg/dL (70-104); POTASSIUM 4.2 mmol/L (3.5-5.1); SODIUM 135 mmol/L (136-145); TCO2 24 mmol/L (25-35)
[2019-04-24 08:04] LABS: CALCIUM 8.9 mg/dL (8.8-10.2); MAGNESIUM 1.9 mg/dL (1.5-2.7)
[2019-04-24] MEDS: MIRALAX PO SCH ×2 (09:15→20:50)
[2019-04-24] MEDS: LOPRESSOR PO SCH ×3 (09:15→18:16)
[2019-04-24] MEDS: ASPIRIN EC PO SCH (09:16)
[2019-04-24] MEDS: GEODON PO SCH ×2 (09:16→18:43)
[2019-04-24] MEDS: COLACE PO SCH ×2 (09:16→20:51)
[2019-04-24] MEDS: ABILIFY PO SCH (09:16)
[2019-04-24] MEDS: ELIQUIS PO SCH ×2 (09:16→20:50)
[2019-04-24] MEDS: CRESTOR PO SCH (20:50)
--- NOTE | 2019-04-24 22:14 | PROGRESS NOTE ---
DATE: 04/24/2019 INTERVAL HISTORY: Her vital signs are unremarkable. Labs have been unremarkable. The patient is denying any new complaints. We are still awaiting insurance approval. Input/output: She states she was able to eat 50% of her meal. She states she is incontinent of her bowels and stools, and it has been ongoing for many months now. Denies any new complaints except that she is feeling weak. OBJECTIVE: Temperature 97.6 degrees, pulse 76, respiratory rate 18, blood pressure 129/58, saturating 96% on room air. General: Does not appear in any acute distress. Oral cavity is moist. Air entry bilaterally equal. No wheeze, rhonchi or crackles. S1, S2 normal. No murmur, rub or gallop. Abdomen is soft, nontender. No lower extremity edema. She does not have a catheter. LABORATORY DATA: No CBC today. BMP suggestive of hyponatremia. Normal kidney function. Microbiology: Urine culture did not have any growth. IMAGING: No new imaging. ASSESSMENT AND PLAN: 1. Suspected syncope, acute encephalopathy and weakness on presentation because of volume depletion and acute kidney injury because of poor p.o. intake, likely in the setting of poor p.o. intake, now resolved. Continue physical therapy. Awaiting insurance approval for rehab transfer. 2. Multiple sclerosis. Continue the patient's home interferon beta therapy. No spasticity on examination. She is alert and oriented x3. I am awaiting to talk with her son to get more history about it. 3. Acute urinary retention. She is on Galo catheter, and the plan was to keep it until 04/26/2019, and then consider voiding trial. 4. History of atrial fibrillation, currently rate well controlled. Continue home metoprolol and Eliquis. 5. History of depression and dementia. Continue home aripiprazole and ziprasidone. 6. Disposition: Awaiting insurance approval. Plan of care discussed with the patient. All of her questions have been answered. cc: Jasmeet Oliva MD
[2019-04-25] MEDS: PRILOSEC PO SCH (06:12)
[2019-04-25] MEDS: SYNTHROID PO SCH (06:12)
[2019-04-25] MEDS: MIRALAX PO SCH ×2 (08:51→22:16)
[2019-04-25] MEDS: ABILIFY PO SCH (08:52)
[2019-04-25] MEDS: LOPRESSOR PO SCH ×3 (08:52→17:14)
[2019-04-25] MEDS: GEODON PO SCH ×2 (08:53→17:14)
[2019-04-25] MEDS: ELIQUIS PO SCH ×2 (08:53→22:10)
[2019-04-25] MEDS: COLACE PO SCH ×2 (08:54→22:15)
[2019-04-25] MEDS: ASPIRIN EC PO SCH (08:55)
[2019-04-25] MEDS: PATIENT'S OWN MED SUBQ SCH (18:30)
--- NOTE | 2019-04-25 19:14 | PROGRESS NOTE ---
DATE: 04/25/2019 INTERVAL HISTORY: No acute event overnight. Patient states she ate some of her food, but not a lot. VITAL SIGNS: Currently, her vital signs reveal temperature 97.7, pulse 56, respiratory rate 18, blood pressure 115/55, saturating 98% on room air. PHYSICAL EXAMINATION: General: Does not appear in acute distress. Oral Cavity: Moist. Lungs: Air entry bilaterally equal. No wheeze, rhonchi, crackles. Heart: S1, S2, normal. No murmur or gallop. Abdomen: Soft, nontender. Extremities: No lower extremity edema. She has a urine catheter. Neurologic: She is alert oriented x3. She does appear to have slow movement. LABS: No new labs today. ASSESSMENT AND PLAN: 1. Suspected syncope, acute encephalopathy, and weakness on presentation because of poor oral intake and volume depletion, leading to acute kidney injury, now resolved. Continue physical therapy. Likely to be transferred to rehab tomorrow. 2. Multiple sclerosis. Continue home interferon beta therapy. No spasticity on examination. She is alert and oriented x3. 3. Acute urinary retention. I will give voiding trial tomorrow and then if she fails, we will consider urine catheter again. 4. History of atrial fibrillation, currently rate controlled. Continue home metoprolol and Eliquis. 5. History of depression. Continue home aripiprazole and ziprasidone. She does not demonstrate any paranoid behavior. 6. Disposition. Likely transfer to [facility] tomorrow. 7. I called patient's son and informed him about patient's course, and answered all of his questions. cc: Jasmeet Oliva MD
--- NOTE | 2019-04-25 20:10 | PROGRESS NOTE ---
DATE: 04/25/2019 INTERVAL HISTORY: No acute events overnight. SUBJECTIVE: She states she ate a little bit today. She is feeling a little better today. We discussed about physical exam findings. She denies any new complaints. CURRENT VITALS: Temperature 97.7 degrees, pulse 56, respiratory rate 18, blood pressure 115/55, saturating 98% on room air. PHYSICAL EXAMINATION: She does not appear in any acute distress.Mouth: Oral cavity is moist. Lungs: Air entry bilaterally equal. No wheeze, rhonchi, or crackles. Cardiovascular: S1, S2 normal. No murmur, rub, or gallop. Abdomen: Soft, nontender. Extremities: No peripheral edema. Neurologic: She is alert oriented to time, place, and person. However, she is not able to remember the details of her medical conditions and medications. LABS: No new labs today. ASSESSMENT AND PLAN: 1. Syncope, acute encephalopathy and weakness on presentation because of poor p.o. intake in the setting of major depressive disorder leading to volume depletion and acute kidney injury, status post intravenous fluid resuscitation. Her p.o. intake has been improving and she has been off intravenous fluid resuscitation. Continue physical therapy. Plan is to discharge her to rehab. 2. History of multiple sclerosis diagnosed 5 years ago. She has had a visit to her neurologist a few days prior to current presentation. Continue home interferon beta therapy. She should maintain outpatient follow-up. 3. Acute urinary retention. She is on Galo catheter and I will give her a voiding trial tomorrow. 4. History of atrial fibrillation, currently rate controlled. Continue home metoprolol and Eliquis. 5. History of major depression with paranoia. Continue home aripiprazole and ziprasidone. She should have outpatient followup with her regular provider at [facility]. DISPOSITION: The patient's insurance has approved her rehab. So, the plan is to discharge her to rehab tomorrow. I called patient's son informed him and discussed with him extensively about patient's clinical condition, her physical deconditioning, and the need for physical therapy. I also explained to him about need for outpatient psychiatry as well as Neurology follow-up for her multiple sclerosis and major depression. I answered all of his questions. cc: Jasmeet Oliva MD
[2019-04-25] MEDS: CRESTOR PO SCH (22:10)
[2019-04-26] MEDS: SYNTHROID PO SCH (06:33)
[2019-04-26] MEDS: PRILOSEC PO SCH (06:33)
[2019-04-26] MEDS: ELIQUIS PO SCH (09:28)
[2019-04-26] MEDS: GEODON PO SCH (09:29)
[2019-04-26] MEDS: ASPIRIN EC PO SCH (09:29)
[2019-04-26] MEDS: ABILIFY PO SCH (09:30)
[2019-04-26] MEDS: LOPRESSOR PO SCH ×2 (09:30→13:30)
[2019-04-26] MEDS: MIRALAX PO SCH (09:33)
[2019-04-26] MEDS: COLACE PO SCH (09:34)
[2019-04-26 12:30] VITALS: BP 114/48
--- NOTE | 2019-04-26 12:40 | DISCHARGE SUMMARY ---
ADMISSION DATE: 04/16/2019 DISCHARGE DATE: 04/26/2019 DISCHARGE DISPOSITION: To [facility]. DISCHARGE CONDITION: Hemodynamically stable. She is alert, she is oriented to herself, to me, and to situation to some extent. DISCHARGE DIAGNOSES: 1. Syncope. 2. Acute encephalopathy. 3. Weakness. 4. Hypokalemia and acute kidney injury. 5. Major depression. OTHER DIAGNOSES: 1. History of major depression requiring psychiatric admission in February 2019. 2. History of paranoid behavior requiring psychiatric admission in February 2019. 3. Essential hypertension. 4. Atrial fibrillation, on Eliquis. 5. History of multiple sclerosis diagnosed in 2009. 6. Gradually worsening physical deconditioning over the last few months. DISCHARGE MEDICATIONS: Aripiprazole 5 mg in the morning time. Aspirin 81 mg daily. Interferon beta 1B, Betaseron 0.3 mg subcu every other day. Rosuvastatin 10 mg at nighttime. Apixaban 5 mg b.i.d. Ziprasidone 60 mg with breakfast and 60 mg with supper. Levothyroxine 12.5 mcg daily. Metoprolol 50 mg b.i.d. Lansoprazole 15 mg daily. Tolterodine 4 mg daily. MiraLAX 17 g b.i.d. as needed to have 1 to 2 soft bowel movements a day. DISCHARGE INSTRUCTIONS: The patient should get evaluation for urinary retention, and Galo catheter should be introduced accordingly. VITALS: At the time of discharge, temperature 97.7 degrees, pulse 51, respiratory rate 14, blood pressure 110/53, saturating 97% on room air. PHYSICAL EXAMINATION: General: Does not appear in any acute distress. She does have mild ptosis of the right eye. Oral cavity is moist. Respiratory: Air entry bilaterally equal. No wheeze or crackles. Cardiac: No murmur or gallop. Abdomen: Soft, nontender. Extremities: No lower extremity edema. She is able to raise both upper and lower extremities above ground level. Neurologic: She is alert, she is oriented to herself, to place, and to the situation to some extent. LABS: At the time of discharge, WBC 4.9, hemoglobin 10.8, platelets 148,000. Sodium 135, potassium 4.2, BUN 11, creatinine 0.7. Magnesium 1.9. SIGNIFICANT MICROBIOLOGY: During hospital admission, urine culture did not have any growth. SIGNIFICANT IMAGING: During hospital admission, head CT on April 16 had no hemorrhage. It had chronic microvascular ischemic changes. Chest x-ray on April 16 did not have any acute abnormality. Renal ultrasound did not have any obstructive uropathy. HOSPITAL COURSE SUMMARY: Ms. Casarez is a 73-year-old lady, with history of major depression, multiple sclerosis, probably early dementia, essential hypertension, and atrial fibrillation, who came in with episodes of syncope. Apparently the patient has had significant functional decline over the last 6 months. She has had major depression, with paranoid behavior requiring psychiatric hospitalization in February 2019. After her discharge, she had not been eating or drinking very well and she seemed dehydrated and so she was brought to the emergency room. In the emergency room, she was found to have acute kidney injury, electrolyte disturbance, and pyuria on analysis, so she was admitted for further management. She was started on intravenous fluid resuscitation as well as intravenous antibiotics, and physical therapy had started seeing her. Her urine culture did not show any growth and her antibiotics were stopped. After intravenous fluid resuscitation her acute kidney injury and electrolytes had resolved. At the time of discharge she was eating a heart-healthy diet and her diet was advanced to regular. While inside the hospital, patient did have an episode of urinary retention and Urology was consulted who had placed a urine catheter. The Galo catheter was removed on April 26 and the patient was given a voiding trial and though incontinent was voiding spontaneously. The patient should be monitored for urine retention. At the time of discharge, I had called the patient's son on 04/25/2019, and had explained to him and discussed with him about the patient's clinical course and the need for outpatient neurology and psychiatric evaluation. TIME SPENT: More than 30 minutes was spent in discharging this patient. cc: Jasmeet Oliva MD
== END 2019-04-26 15:46 | DRG 683 ==
LOC: SUPCPDRO → EDBD 17:42 → 3N 17:42 → EDUNIT# 17:42 → ED 17:42 → SUATTDRO 17:43
PROVIDERS: ATTEND Internal Medicine
CPT/HCPCS: 70450; 71020; 71046; 76770; 80048; 80053; 81001; 82550; 82607; 82746; 82805; 82948; 83735; 84439; 84443; 84484; 85025; 87088; 93005; 93010; 94761; 94799; 96360; 97110; 97162; 97166; 97530; 97535; 99285; A9270; J0696; J3480; J7030; XXXXX

== ENCOUNTER 2019-07-25 19:13 | Inpatient (IN) ==
--- NOTE | 2019-07-25 19:58 | PROVIDER DOCUMENTATION ---
HPI-General Adult - General Chief Complaint: SEPSIS ALERT - D Stated Complaint: SOB Time Seen by Provider: 07/25/19 19:39 Source: family Allergies/Adverse Reactions: Patient Allergies Allergy/AdvReac Type Severity Reaction Status Date / Time amoxicillin [Amoxicillin] Allergy RASH Verified 04/16/19 18:33 sulfamethoxazole Allergy RASH Verified 04/16/19 18:33 [From Bactrim] trimethoprim [From Bactrim] Allergy RASH Verified 04/16/19 18:33 Home Medications: Home Medication List Medication Instructions Recorded Confirmed Last Taken Type ROSUVAstatin [Crestor] 10 mg PO HS 07/28/16 07/26/19 06/12/19 21:00 History Lansoprazole [Prevacid] 15 mg PO DAILY 10/12/16 07/26/19 06/13/19 09:00 History Aspirin EC 81 mg PO DAILY 10/13/16 07/26/19 06/13/19 09:00 History Tolterodine Tartrate [Tolterodine 4 mg PO DAILY 12/19/18 07/26/19 06/13/19 09:00 History Tartrate ER] Apixaban [Eliquis] 5 mg PO BID 04/16/19 07/26/19 06/13/19 09:00 History Levothyroxine Sodium [Levoxyl] 12.5 mcg PO DAILY 04/16/19 07/26/19 06/12/19 21:00 History Acetaminophen [Tylenol] 650 mg PO Q8HR PRN 06/13/19 07/26/19 Unknown History Zinc Gluconate 220 mg PO QHS 06/13/19 07/26/19 06/12/19 21:00 History Interferon Beta-1A [Avonex] 0.3 mg IM DAILY 07/26/19 07/26/19 Unknown History Levofloxacin [Levaquin] 500 mg PO HS 07/26/19 07/26/19 Unknown History Polyethylene Glycol 3350 [Miralax] 17 gm PO DAILY 07/26/19 07/26/19 Unknown History Rosuvastatin Calcium 10 mg PO DAILY 07/26/19 07/26/19 Unknown History - History of Present Illness -Gen Adult Nature of Presenting Problems: 73 YO F pmh for MS with recent decline per sister, comes in by EMS from rehab for possible aspiration pna. Sister is present at bedside. Pt is minimally responsive. She is DNR. Sister states on yesterday, she noticed pt not being as responsive or answering questions as well. She tried giving her some coca cola and states she started coughing. the rehab facility called EMS today stating pt had possible aspiration pna. Sister states she wasn't present at rehab with her today. Sister states pt has had recent decline in health status over the past month. Per EMS, pt had decreasing o2 sats, she was put on non rebreather and sat s improved. Timing: reports: still present Similar Symptoms Previously?: Yes Recently seen or treated by another doctor?: No Review of Systems - Adult - REVIEW OF SYSTEMS - ADULT ROS:: unobtainable per condition Constitutional: reports: see HPI Past History - Adult - PAST MEDICAL HISTORY-ADULT Review of Records: reports: Old Records Reviewed, Social history reviewed & non-contributory. Major Childhood Illnesses: reports: denies history Cardiovascular: reports: CHF, HTN Respiratory: reports: denies history Gastrointestinal: reports: denies history Obstetrical/Gynecological: reports: denies history Genitourinary: reports: kidney stones Musculoskeletal: reports: other (multiple sclerosis) Neurological: reports: denies history Psychiatric: reports: anxiety, depression Endocrine/Immune: reports: denies history Other Conditions: reports: denies history - PRIOR SURGERIES/PROCEDURES Surgical/Procedure History: reports: orthopedic (extremity) (left wrist), other (bi-lat tka, cyst removed from kidney) - IMMUNIZATION STATUS Childhood Immunizations: See Nurse Assessment Flu Vaccine: See Nurse Assessment - FAMILY HISTORY Family History: reviewed, not pertinent - SOCIAL HISTORY Living Situation: other (currently in rehab) Physical Exam-General - PHYSICAL EXAM-ADULT Initial Vital Signs Reviewed: Yes - CONSTITUTIONAL General Appearance: thin, other (not answering questions. appears ill. little motion) - EYES Eyes: EOM palsy - HEAD, EARS, NOSE, MOUTH & THROAT HENMT: other (dry membranes) - RESPIRATORY Respiratory: crackles - CARDIOVASCULAR Cardiovascular: tachycardia - MUSCULOSKELETAL Extremity: no pedal edema - SKIN Integumentary: decubitus (1.5 inch decubitus ulcer with foul odor) - NEUROLOGIC Neurologic: other (unable to perform) - PSYCHIATRIC Psych/Mental Status: other (unable to obtain) Progress - PLAN OF CARE/RESULTS Progress/Plan/Lab Results: Vital Signs - 8 hr 07/25/19 19:31 Temperature 97.9 F Pulse Rate 112 H Respiratory Rate 32 H Blood Pressure 151/82 O2 Sat by Pulse Oximetry 93 L Orders Category Date Time Status Cardiac Monitoring DIRECTED Care 07/25/19 19:46 Active IV Insertion ORDERED Care 07/25/19 19:46 Active Notify MD of + Sepsis Screen NOW Care 07/25/19 19:46 Active Notify Physician As Ordered Care 07/25/19 19:46 Active CHEST-1 VIEW [RAD] Stat Exams 07/25/19 19:[address] THORAX W/O CONTRAST [CT] Stat Exams 07/25/19 19:47 Ordered BLOOD CULTURE [BLDCUL] Stat Lab 07/25/19 19:46 Uncollected CBC WITH DIFF [HEME] Stat Lab 07/25/19 19:46 Uncollected CK PROFILE [SP CHEM] Stat Lab 07/25/19 19:46 Uncollected COMPREHENSIVE METABOLIC PANEL [CHEM] Stat Lab 07/25/19 19:46 Uncollected LACTATE, PLASMA [CHEM] Q3H Lab 07/25/19 20:00 Uncollected LACTATE, PLASMA [CHEM] Q3H Lab 07/25/19 23:00 Uncollected LACTATE, PLASMA [CHEM] Q3H Lab 07/26/19 02:00 Uncollected PROTIME WITH INR [COAG] Stat Lab 07/25/19 19:46 Uncollected PTT [COAG] Stat Lab 07/25/19 19:46 Uncollected TROPONIN T Stat Lab 07/25/19 19:46 Uncollected URINALYSIS W/POSS RFLX CULT [URINALYSIS] Stat Lab 07/25/19 19:46 Uncollected Oxygen Device Stat Oth 07/25/19 19:46 Active hypernatremia. Sepsis 2/2 to aspiration pna. Result Diagrams: 07/25/19 20:51 07/26/19 16:03 - XRAY 1 XRAY Study: Chest Impression: See EMR Report (INDICATION: sepsis COMPARISON: 04/16/2019 FIN DINGS: There are some minimal nonspecific infiltrates in the lung bases bilaterally. Heart size is normal. No pneumothorax or pleural effusion. IMPRESSION: Minimal bibasilar infiltrates consistent with pneumonia or aspiration. See chest CT report for greater detail. Electronically signed by Won Field 07/25/2019 8:50 PM) - CT/MRI 1 CT Study: Head Impression: See EMR Report (1. moderate atrophy. no acute findings. 2. increased white matter ischemic changes compared to the previous exam. 04/16/19) 2 CT Study: Thorax Impression: See EMR Report (CT THORAX W/O CONTRAST - 07/25/2019 INDICATION: possible aspiration COMPARISON: Chest x-ray earlier 07/25/2019 FINDINGS: There is no adenopathy. Heart size is normal. The main pulmonary arteries are severely dilated indicating chronic pulmonary artery hypertension. There are several small renal stones in the upper poles the kidneys bilaterally. No hydronephrosis. There is a simple left renal cyst. No acute abnormalities in the upper abdomen. There is near complete fluid opacification of all of the left lower lobe airways, and many right lower lobe airways as well. There is significant volume loss of the left lower lobe as result. There is some minimal hazy infiltrate in both lower lobes and in the right middle lobe. No visible COPD. There are moderate degenerative changes of the spine. No acute or suspicious bony lesion. IMPRESSION: 1. Severe fluid/mucus opacification of airways in both lower lobes left greater than right. Aspiration pneumonia in both lower lobes and the right middle lobe. 2. Severe pulmonary artery hypertension. No significant COPD visible. 3. Bilateral nonobstructing renal stones. This exam was performed using automated exposure control, adjustment of mA or kV according to patient size, and/or use of iterative reconstruction technique Electronically signed by Won Field 07/25/2019 8:48 PM) - CONSULTS/PCP/HOSPITALIST Notification #1 *Consult/PCP/Hospitalist*: Dr. Ag Time Discussed: 23:07 Consult Disposition: Will see in ED Departure - Departure Date of Disposition Decision: 07/25/19 Time of Disposition Decision: 23:15 DIAGNOSIS: Hypernatremia, AMS (altered mental status), Decubitus ulcer, Sepsis, Pneumonia, Hypoxia Disposition: ADMITTED INPATIENT 09 Certified Medical Emergency: Emergent Condition: Stable - Critical Care Note This patient required my direct & personal management of CC.: No Attestation - Physician/ TAL Attestation The physician spent face to face time with patient:: Yes Advanced Practice Provider documentation review:: Supervising physician onsite and consulted in the evaluation and care of this patient. The physician did have a face to face encounter with the patient.
--- NOTE | 2019-07-25 20:51 | Diag Imaging Result Doc PS360 ---
CT THORAX W/O CONTRAST - 07/25/2019 INDICATION: possible aspiration COMPARISON: Chest x-ray earlier 07/25/2019 FINDINGS: There is no adenopathy. Heart size is normal. The main pulmonary arteries are severely dilated indicating chronic pulmonary artery hypertension. There are several small renal stones in the upper poles the kidneys bilaterally. No hydronephrosis. There is a simple left renal cyst. No acute abnormalities in the upper abdomen. There is near complete fluid opacification of all of the left lower lobe airways, and many right lower lobe airways as well. There is significant volume loss of the left lower lobe as result. There is some minimal hazy infiltrate in both lower lobes and in the right middle lobe. No visible COPD. There are moderate degenerative changes of the spine. No acute or suspicious bony lesion. IMPRESSION: 1. Severe fluid/mucus opacification of airways in both lower lobes left greater than right. Aspiration pneumonia in both lower lobes and the right middle lobe. 2. Severe pulmonary artery hypertension. No significant COPD visible. 3. Bilateral nonobstructing renal stones. This exam was performed using automated exposure control, adjustment of mA or kV according to patient size, and/or use of iterative reconstruction technique Electronically signed by Won Field 07/25/2019 8:48 PM
--- NOTE | 2019-07-25 20:53 | Diag Imaging Result Doc PS360 ---
CHEST-1 VIEW - 07/25/2019 INDICATION: sepsis COMPARISON: 04/16/2019 FINDINGS: There are some minimal nonspecific infiltrates in the lung bases bilaterally. Heart size is normal. No pneumothorax or pleural effusion. IMPRESSION: Minimal bibasilar infiltrates consistent with pneumonia or aspiration. See chest CT report for greater detail. Electronically signed by Won Field 07/25/2019 8:50 PM
[2019-07-25] MEDS ORDERED: CLINDAMYCIN 300 MG in NS 50 ML IV ONE (21:02)
[2019-07-25] MEDS ORDERED: NS 1,000 ML IV ONE (21:03)
[2019-07-25 21:42] LABS: INR 1.95; PROTIME 22.7 Seconds (11.0-16.0); PTT 30.2 Seconds (22.3-41.8)
[2019-07-25 21:53] LABS: BASO# 0.02 X1000 (0.0-0.2); BASO% 0.1 % (0.0-0.8); HEMATOCRIT 45.1 % (37.0-47.0); HEMOGLOBIN 13.3 g/dL (12.0-16.0); IMM GRAN# 0.07 X1000 (0.0-0.04); IMM GRAN% 0.4 % (0.0-0.5); LYMPH# 2.14 X1000 (1.2-3.4); LYMPH% 13.3 % (20.5-51.1); MCH 27.4 PG (27-31); MCHC 29.5 g/dL (33-37); MCV 92.8 FL (81-99); MONO# 0.72 X1000 (0.11-0.59); MONO% 4.5 % (1.7-9.3); MPV 12.2 FL (7.4-10.4); NEUT# 13.17 X1000 (1.4-6.5); NEUT% 81.7 % (42.2-75.2); PLT 315 X1000 (130-400); RBC 4.86 XMIL (4.2-5.4); RDW 14.8 % (11.5-14.5); WBC 16.12 X1000 (4.8-10.8)
[2019-07-25 22:00] LABS: ALB/GLOB RATIO 0.9; ALBUMIN 3.3 g/dL (3.5-5.0); CALCIUM 9.7 mg/dL (8.8-10.2); CREATININE 1.2 mg/dL (0.5-0.9); POTASSIUM 3.6 mmol/L (3.5-5.1); TOTAL BILIRUBIN 0.67 mg/dL (0.20-1.00)
[2019-07-25] MEDS ORDERED: CLINDAMYCIN 600 MG/D5W 600 MG/50 ML IVPB IV ONE (22:05)
[2019-07-25 23:16] LABS: URINE SOURCE CATH
[2019-07-25 23:41] LABS: BILIRUBIN URINE SMALL (NEGATIVE); BLOOD URINE MODERATE (NEGATIVE); CLARITY CLEAR (CLEAR); COLOR YELLOW; GLUCOSE URINE NEGATIVE (NEGATIVE); KETONE URINE NEGATIVE (NEGATIVE); LEUKOCYTES URINE MODERATE (NEGATIVE); NITRITE URINE NEGATIVE (NEGATIVE); PROTEIN URINE 30 mg/dL (NEGATIVE); SP GRAVITY URINE >= 1.030; UROBILINOGEN URINE 0.2 EU/dL (0.2-1.0)
[2019-07-25 23:42] LABS: URINE BACTERIA 2+ /HFP; URINE CAST NONE SEEN /LPF; URINE CRYSTAL NONE SEEN /HPF; URINE EPITHELIAL CELLS >10 /HPF (<10); URINE RBC TNTC /HPF (<10); URINE WBC TNTC /HPF (<10); URINE YEAST PRESENT /HPF
[2019-07-26] MEDS ORDERED: D5 1/2 NS 1,000 ML IV ONE (00:55)
[2019-07-26] MEDS: ZYVOX 600 MG/D5W 600 MG/300 ML IVPB IV SCH ×2 (01:00→13:33)
[2019-07-26 01:44] LABS: CALCIUM 9.4 mg/dL (8.8-10.2); CREATININE 1.3 mg/dL (0.5-0.9); POTASSIUM 3.7 mmol/L (3.5-5.1)
[2019-07-26] MEDS: OFIRMEV 1000 MG/ISOTONIC SOLN 1,000 MG/100 ML BOTTLE IV SCH ×2 (03:30→09:55)
[2019-07-26] MEDS ORDERED: ZOFRAN IV PRN (05:46)
[2019-07-26] MEDS ORDERED: TYLENOL PR PRN (05:46)
[2019-07-26] MEDS ORDERED: NS 1,000 ML IV ONE (06:04)
[2019-07-26] MEDS: FLAGYL 500 MG/NS 500 MG/100 ML IVPB IV SCH ×3 (06:15→21:15)
[2019-07-26] MEDS: ROCEPHIN 1 GM in NS 50 ML IV SCH (06:16)
[2019-07-26 06:18] LABS: ALLEN TEST YES; BE 6.7 mmoll (-3.0-3.0); BLOOD TYPE ARTERIAL; HCO3-(ACT) 30.1 mmoll (20.0-26.0); METHB 1.6 % (0.0-1.5); O2(CT) 17.3 mL/dL (15.0-23.0); O2HB 96.8 % (95.0-99.0); PCO2(98.6) 39 mmHg (35-45); PO2(98.6) 149 mmHg (60-100); SAMPLE BLOOD; SAO2 99.2 % (95.0-100.0); THB 12.5 g/dL (11.5-17.4)
[2019-07-26 06:19] LABS: MODALITY NRB
--- NOTE | 2019-07-26 06:23 | Diag Imaging Result Doc PS360 ---
CT HEAD W/O CONTRAST - 07/25/2019 INDICATION: AMS COMPARISON: 04/16/2019 FINDINGS: The ventricles and sulci are normal in size and contour. There has been increase in the periventricular white matter chronic microvascular ischemia. No intracranial mass or hemorrhage. The skull is intact. The sinuses, mastoids, and middle ears are clear. IMPRESSION: Slight worsening in the cerebral white matter chronic microvascular ischemia. No acute process. This exam was performed using automated exposure control, adjustment of mA or kV according to patient size, and/or use of iterative reconstruction technique Electronically signed by Won Field 07/26/2019 6:20 AM
[2019-07-26 06:45] LABS: HEMOGLOBIN A1C 5.6 % (4.8-6.0)
--- NOTE | 2019-07-26 06:46 | HISTORY AND PHYSICAL ---
CHIEF COMPLAINT: Possible aspiration. HISTORY OF PRESENT ILLNESS: Ms. Casarez came in via ambulance. She is a 73-year-old female with a past medical history of multiple sclerosis, major depression, dementia, hypertension and atrial fibrillation. Per the sister, she has been less responsive and has not been drinking as well. Apparently she had an episode where she choked and they felt she aspirated and sent her into the emergency room. CT of the chest does confirm what appears to be aspiration pneumonia. She also with very minimal responsiveness. She is nonverbal to most questions. She will be admitted for further evaluation and treatment. PAST MEDICAL HISTORY: 1. Atrial fibrillation. 2. CHF. 3. Hypertension. 4. Dementia. 5. Multiple sclerosis. 6. Depression. 7. Hypothyroidism. PREVIOUS SURGICAL HISTORY: 1. Bilateral knee surgery. 2. Left wrist surgery. 3. Cataract surgery. ALLERGIES: Amoxicillin, Bactrim. SOCIAL HISTORY: Former smoker. No current tobacco, alcohol or illicit drugs. FAMILY HISTORY: This could not be obtained due to mentation at this time. HOME MEDICATIONS: A list of home medications has not been reconciled. An order was placed for nursing to reconcile medications. We will restart these when appropriate. REVIEW OF SYSTEMS: Fourteen point review of systems could not be conducted related to mentation. Pertinent positives for admission are list above in the HPI. PHYSICAL EXAMINATION: VITAL SIGNS: Temp 102.4, pulse 91, respirations 25, blood pressure 113/65, oxygen saturation 98% on nonrebreather. GENERAL: Chronically ill-appearing 73-year-old female, very minimally responsive, nonverbal at this time, in no acute distress. HEENT: Head is atraumatic, normocephalic. Pupils equal, round and reactive to light. Extraocular eye movement could not be tested. Sclerae anicteric. Conjunctivae pink. Oral mucosa is dry. NECK: Supple. No JVD. No thyromegaly. Trachea is midline. No cervical lymphadenopathy. CARDIAC: S1, S2 appreciated. No murmurs, gallops, rubs. LUNGS: Decreased bilaterally. Coarse crepitations noted throughout the air grier, greater in the bases. No wheezing. Symmetric rise and fall of respirations. ABDOMEN: Soft, nondistended, nontender. Bowel sounds present in all 4 quadrants. Normoactive. No pulsatile masses or organomegaly. EXTREMITIES: No cyanosis, clubbing or edema. 1+ pedal pulses. GENITOURINARY: No bladder distention. Galo catheter will be placed, otherwise deferred. NEUROLOGICAL: Nonverbal at this time. Not oriented. Does reflex to deep stimulus. DIAGNOSTIC DATA: CT of the head, moderate atrophy, chronic white matter changes, no acute findings. CT of the chest: Several fluid/mucus opacifications in the airways of both lower lobes, left greater than right. Aspiration pneumonia in both lower lobes and in the right middle lobe. Severe pulmonary artery hypertension. LABORATORY DATA: WBC 16.10, hemoglobin 13.3, hematocrit 45.1, platelet count 315,000. Sodium 168, potassium 3.6, chloride 125, BUN 38, creatinine 1.2, glucose 152. Urine greater than 10 epithelial cells; however, it was leuko esterase positive. ASSESSMENT AND PLAN: 1. Aspiration pneumonia. 2. Hypernatremia. 3. Leukocytosis secondary to #1. 4. Fluid volume depletion. 5. Acute kidney injury. 6. MS, aware. 7. Decubitus ulcer. PLAN: Place the patient on CICU. We will start Zyvox, Rocephin and Flagyl related to her penicillin allergy. DuoNeb. We will hold NPO at this time. Consult physical therapy. We will receive a urine culture. We will send a wound culture from the decubitus ulcer, consult wound care. Aggressive pulmonary toilet. Further recommendations per patient's clinical course. Dictated by MARCIN Calderon for Rigo Ag MD I have performed a face to face diagnostic evaluation. Labs/ Xray- reviewed. Exam- Chest- rhonchi, CV- regular. A/P- Pneumonia, hypernatremia- Admit, check blood culture, IV ABX, IV fluids. Dr. Ag cc: MARCIN Calderon MD [facility]ENTER[facility]ura
[2019-07-26] MEDS ORDERED: TYLENOL PO PRN (10:36)
[2019-07-26] MEDS: D5W 1,000 ML IV SCH ×2 (11:30→16:51)
[2019-07-26] MEDS: SANTYL OINT TOP SCH (12:17)
[2019-07-26] MEDS: DAKIN S TOP SCH ×2 (12:18→21:15)
--- NOTE | 2019-07-26 12:21 | PROGRESS NOTE ---
DATE: 07/26/2019 INTERVAL HISTORY: Ms. Casarez was admitted for acute encephalopathy, sepsis and acute hypoxic respiratory failure with lactic acidosis. No acute events overnight. She continued to receive D5 half-normal saline, which I have changed to D5 water. SUBJECTIVE: Patient is nonverbal. She has spasticity affecting all of her extremities. VITALS: Temperature of 99.6 degrees, pulse 80, respiratory rate 24, blood pressure 110/58, saturating 97% on non-rebreather mask. PHYSICAL EXAMINATION: General: She is not in acute distress. HEENT: She keeps her mouth open. Oral cavity is dry. Pupils are bilaterally equal reacting to light. Lungs: Decreased air entry in left inframammary region. No wheeze or rhonchi. Inspiratory crackles in left inframammary region. Cardiovascular: S1, S2 normal. Regular. Tachycardic. No murmur or gallop. Abdomen: Scaphoid, soft, nontender. Active bowel sounds. Extremities/integumentary: She does not have lower extremity edema. She does have a sacral decubitus wound affecting bilateral heels and bilateral gluteal region. I looked at the picture of the gluteal wound. She has osteomyelitis affecting sacrum, as well as right heel. LABS: Suggestive of leukocytosis. Normocytic anemia. Normal platelet count, hypernatremia, hyperchloremia, acute kidney injury, lactic acidosis is improving. IMAGING: Head CT was unremarkable for acute pathology. In the past, she had brain MRI which had white matter changes. ASSESSMENT AND PLAN: 1. Sepsis. Acute hypoxic respiratory failure. Lactic acidosis due to predominantly left lower lobe aspiration pneumonia. 2. Hypernatremia, hyperchloremia and acute kidney injury due to intravascular volume depletion due to poor oral intake and free water deficit. 3. Multiple sclerosis, progressive in nature with generalized spasticity and significant physical deconditioning. PLAN: 1. Change intravenous fluids to D5 water and continue patient on current intravenous antibiotic including linezolid, ceftriaxone and metronidazole until final culture data becomes available. 2. She also has osteomyelitis affecting right heel and sacrum, for which I will just continue local wound care. 3. I will consult Neurology to see if she could be a candidate for intravenous steroids for multiple sclerosis exacerbation, though it sounds more like progression rather than acute exacerbation. 4. The patient has had significant functional decline. Her code status is do not resuscitate level 1. I will consult Palliative Care as hospice care could be an appropriate option for patient. I brought this up with the patient's sister at bedside. I have entered a discussion with the patient's son, who is a surrogate decision maker. cc: Jasmeet Oliva MD MTDD
[2019-07-26] MEDS: DUONEB (A & A) INH SCH ×4 (15:12→21:10)
[2019-07-26 16:31] LABS: CALCIUM 8.6 mg/dL (8.8-10.2); CREATININE 1.3 mg/dL (0.5-0.9); POTASSIUM 2.8 mmol/L (3.5-5.1)
[2019-07-26] MEDS ORDERED: MAGNESIUM SULFATE 2 GM/S.W.I. 2 GM/50 ML IVPB IV ONE (17:05)
[2019-07-26] MEDS ORDERED: VANCOMYCIN IV PER PHARMACY MISC SCH (17:15)
--- NOTE | 2019-07-26 17:58 | PROGRESS NOTE ---
DATE: 07/26/2019 ADDENDUM TO PREVIOUSLY DICTATED PROGRESS NOTE: I went to the bedside to have a discussion about goals of care with the patient's two sons and sister. I explained to them about nature of patient's critical condition including sepsis, acute osteomyelitis, acute aspiration pneumonia, acute hypoxic respiratory failure. I explained to them about her profound metabolic derangement and acute kidney injury as well. I explained to them that her condition is really critical and she has had significant functional decline over the last few months because of progressive multiple myeloma. I told them that with intravenous fluids and intravenous antibiotics, I may or may not be able to take care of her electrolytes in terms of number, as well as infection. Though, in the background, she remains at significantly high risk of developing these medical conditions again because of her baseline poor functional status. I also explained to them that considering her functional status, she is not a candidate for surgical debridement of her wounds. I answered all of their questions. They understood it. They have decided to make the patient do not resuscitate level 1. For now, they want me to continue these measures to see if that helps her mentation to any extent and then they will decide further course of action. All of their questions have been answered. cc: Jasmeet Oliva MD
[2019-07-26] MEDS: POTASSIUM CHLORIDE 20 MEQ/SWI 20 MEQ/100 ML IVPB IV SCH ×3 (18:03→23:28)
--- NOTE | 2019-07-26 19:29 | CONSULTATION ---
DATE OF CONSULTATION: 07/26/2019 HISTORY OF PRESENT ILLNESS: Ms. Casarez is 73 years old and she has had a general and gradual neurologic decline over several months. History from attentive family at the bedside and from review of available hospital records is that multiple sclerosis was diagnosed about 6 years ago. She was treated with Betaseron. Current chart shows home medicine was Avonex, but family gives clear history this has always been Betaseron. She was treated with an infusion briefly a few years ago, which might have been Tysabri, but family is not certain. They do not recall any definite focal features with her illness. At least a year ago, she was able to be awake and alert and talk sensibly. She began to have trouble finding words. Some family thought there was forgetfulness but others thought this was simply her inability to find words when speaking. She has a diagnosis of dementia listed on [facility] documents. Family does not recall her being treated with cholinesterase inhibitor. Approximately 8 months ago she seemed suddenly psychotic. She was hearing things, seeing things, hearing voices, having delusions. She spent some time as a inpatient in a psychiatry hospital. She took Abilify transiently. Family is certain she had not taken any dopaminergic medicines prior to her psychosis. She went into a rehab facility a few months ago. She seemed to gradually decline. She has not stood without assistance for at least a few months. She has not stood at all for several weeks. She has not been walking. She stopped eating and drinking. She had become gradually more withdrawn and stopped speaking. She did not complain of headache to a significant degree. Family did not recognize definite unconsciousness or altered awareness. Still, there was never a clear focal neurologic feature. DIAGNOSTIC DATA: Workup here includes brain MRI which shows diffuse white matter changes, but nothing that appears to be focal or acute. Family believes MRI several months ago in [place] was similarly unremarkable for acute change. LABORATORY DATA: Lab work here shows sodium 168, creatinine 1.2, BUN 38 and then 42, blood sugars 150 to 200 range, normal liver enzymes. She had taken clonazepam in the past, but that had been stopped according to family. We do not have urine drug screen this admission. PHYSICAL EXAMINATION: Vital sign record shows temperature 102.4 degrees maximum about 16 hours ago. She has had some periods of being afebrile and last temperature was 100.1 degrees. Initial systolic blood pressures were 150s, recently 110s to 120s. Heart rate has ranged 90s to 110s earlier, 70s to 90s in recent hours. On exam, Ms. Casarez is akinetic, rigid and mute. She is on her left side. She did not respond to me or communicate. She did not withdraw with moderate stimulation over the limbs. Plantar response is extensor bilaterally. Limb tone is increased throughout, with no definite cogwheeling. I do not find any tonal asymmetry. I did not see spontaneous limb movement. She has some rigidity in the neck commensurate with her limb tone, without definite meningismus. There is lateral eye movement with passive head turning. Facial motility is diminished bilaterally and is symmetric. Tongue is midline. IMPRESSION AND PLAN: Global encephalopathy, akinetic rigidity and mutism. 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 I do not think this is a multiple sclerosis exacerbation. Some of her current encephalopathy can be attributed to metabolic problems including significant hypernatremia and moderate uremia. She had some fever earlier, but that appears to be resolved. Relatively unchanged MRI findings are reassuring. I do not think we need further imaging now. I agree with the family's decision for conservative management and Do Not Resuscitate/Allow Natural order. She may show some improvement in encephalopathy findings with correction of her sodium and improvement in renal function. We might consider checking cerebrospinal fluid if she becomes febrile again. [facility] other specific suggestions [facility]. Thanks for asking us to see Ms. Casarez. I discussed my findings and uncertainty regarding diagnosis, and agreement with plans for conservative management at length with family. cc: MD JACINTA Raya III
[2019-07-26] MEDS ORDERED: VANCOMYCIN 1,350 MG in NS 250 ML IV ONE (20:00)
[2019-07-26] MEDS ORDERED: CRESTOR PO SCH (21:00)
[2019-07-26] MEDS: DILAUDID IV PRN (22:14)
[2019-07-27] MEDS: D5W 1,000 ML IV SCH ×3 (00:55→16:54)
[2019-07-27] MEDS: DUONEB (A & A) INH SCH ×4 (03:01→22:07)
[2019-07-27] MEDS: FLAGYL 500 MG/NS 500 MG/100 ML IVPB IV SCH ×4 (03:51→21:25)
[2019-07-27] MEDS: ROCEPHIN 1 GM in NS 50 ML IV SCH (04:06)
[2019-07-27 04:47] LABS: ALLEN TEST YES; BE 0.5 mmoll (-3.0-3.0); BLOOD TYPE ARTERIAL; HCO3-(ACT) 25.3 mmoll (20.0-26.0); METHB 0.8 % (0.0-1.5); O2(CT) 18.1 mL/dL (15.0-23.0); O2HB 97.3 % (95.0-99.0); PCO2(98.6) 41 mmHg (35-45); PO2(98.6) 116 mmHg (60-100); SAMPLE BLOOD; SAO2 99.4 % (95.0-100.0); THB 13.1 g/dL (11.5-17.4)
[2019-07-27 04:48] LABS: MODALITY VENTIMASK
[2019-07-27 05:21] LABS: BASO# 0.01 X1000 (0.0-0.2); BASO% 0.1 % (0.0-0.8); EOS# 0.02 X1000 (0.0-0.7); EOS% 0.2 % (0.0-10.0); HEMATOCRIT 36.3 % (37.0-47.0); HEMOGLOBIN 10.5 g/dL (12.0-16.0); IMM GRAN# 0.03 X1000 (0.0-0.04); IMM GRAN% 0.2 % (0.0-0.5); LYMPH# 1.76 X1000 (1.2-3.4); LYMPH% 14.6 % (20.5-51.1); MCH 27.4 PG (27-31); MCHC 28.9 g/dL (33-37); MCV 94.8 FL (81-99); MONO# 0.58 X1000 (0.11-0.59); MONO% 4.8 % (1.7-9.3); MPV 12.1 FL (7.4-10.4); NEUT# 9.67 X1000 (1.4-6.5); NEUT% 80.1 % (42.2-75.2); PLT 191 X1000 (130-400); RBC 3.83 XMIL (4.2-5.4); RDW 14.6 % (11.5-14.5); WBC 12.07 X1000 (4.8-10.8)
[2019-07-27 05:52] LABS: CALCIUM 8.3 mg/dL (8.8-10.2); POTASSIUM 3.9 mmol/L (3.5-5.1)
[2019-07-27] MEDS: SANTYL OINT TOP SCH (08:03)
[2019-07-27] MEDS: DAKIN S TOP SCH ×2 (08:03→21:26)
--- NOTE | 2019-07-27 08:55 | PROGRESS NOTE ---
DATE: 07/27/2019 INTERVAL HISTORY: She had 2 of the blood cultures growing gram-positive cocci and her antibiotics were changed from linezolid to vancomycin. She also has episode of fever. SUBJECTIVE: Ms. Casarez is mute and does not participate in engaging in clinical encounter meaningfully. She had a modest decline in her WBC count and hypernatremia and hyperchloremia. VITALS: Currently temperature 98.7 degrees, pulse 75, respiratory 20, blood pressure 94/45, saturating 100% on 50% Venturi mask. PHYSICAL EXAMINATION: Does not appear to be in acute distress. On strong verbal stimuli, she did open her eyes but does not follow commands.Lungs: Physical examination otherwise, air entry bilaterally equal. No wheeze, rhonchi, or crackles. Cardiovascular: S1, S2 normal. No murmur or gallop. Abdomen: Scaphoid, soft, nontender. Extremities: No lower extremity edema. She has a urine catheter and temporal wasting. She had generalized rigidity without any cogwheeling. On my previous examination she had a sacral decubitus wound destroying the bone as well as decubitus wounds affecting bilateral heels. [place]S: [place] [address], normocytic anemia, normal platelet count. Normal ABG with good oxygenation. Decreasing sodium and chloride level. Improving acute kidney injury. MICROBIOLOGY: Blood cultures are growing gram-positive cocci. Urine culture in lab. IMAGING: No new imaging. ASSESSMENT AND PLAN: 1. Sepsis, acute hypoxic respiratory failure, lactic acidosis due to sacral osteomyelitis, right heel osteomyelitis, left lower lobe aspiration pneumonia. Follow up final blood culture results. Continue intravenous fluids, intravenous ceftriaxone, metronidazole and vancomycin. Continue n.p.o. status. 2. Acute encephalopathy: A combination of metabolic encephalopathy and underlying neurode- generative disease. 2. Hypernatremia, hyperchloremia and acute kidney injury due to free water deficit due to poor oral intake leading to intravascular vascular volume depletion. Continue D5 water at current rate and follow up with serial BMP. 3. History of multiple sclerosis, psychiatric illness requiring inpatient psychiatric admission in December 2018, progressive functional decline due to neurodegenerative disorder with rigidity since last few months. Her code status is DNR level 1. Neurology does not have any immediate recommendation. Continue to address her metabolic problems to see if that improves her functioning to some extent. Otherwise conservative management as per discussion with the family. I will give intravenous hydromorphone as needed for pain. DISPOSITION: I will continue to monitor patient in CVC unit. Plan of care discussed with nursing team. All questions have been answered. Yesterday I had extensive discussion about plan of care with the patient's sister and 2 sons. cc: Jasmeet Oliva MD MTDD
[2019-07-27] MEDS ORDERED: ASPIRIN EC PO SCH (09:00)
[2019-07-27] MEDS ORDERED: SYNTHROID PO SCH (09:00)
[2019-07-27] MEDS ORDERED: MIRALAX PO SCH (09:00)
[2019-07-27] MEDS ORDERED: DETROL LA PO SCH (09:00)
[2019-07-27] MEDS ORDERED: INTERFERON BETA 0.3 MG IM SCH (09:00)
[2019-07-27] MEDS: DILAUDID IV PRN ×2 (12:58→21:26)
[2019-07-27 16:30] LABS: AGAP 11; BUN 25 mg/dL (8-22); CALCIUM 8.1 mg/dL (8.8-10.2); CHLORIDE 115 mmol/L (98-107); COSMO 306; CREATININE 0.7 mg/dL (0.5-0.9); ESTIMATED GFR > 60; GLUCOSE 124 mg/dL (70-104); POTASSIUM 3.6 mmol/L (3.5-5.1); SODIUM 151 mmol/L (136-145); TCO2 25 mmol/L (25-35)
[2019-07-28] MEDS: D5W 1,000 ML IV SCH ×4 (01:49→22:13)
[2019-07-28] MEDS: FLAGYL 500 MG/NS 500 MG/100 ML IVPB IV SCH ×4 (02:52→21:06)
[2019-07-28] MEDS: DUONEB (A & A) INH SCH ×4 (03:10→22:00)
[2019-07-28] MEDS: ROCEPHIN 1 GM in NS 50 ML IV SCH (04:40)
[2019-07-28 05:41] LABS: EOS# 0.07 X1000 (0.0-0.7); EOS% 0.6 % (0.0-10.0); HEMATOCRIT 33.1 % (37.0-47.0); HEMOGLOBIN 9.7 g/dL (12.0-16.0); IMM GRAN# 0.04 X1000 (0.0-0.04); IMM GRAN% 0.4 % (0.0-0.5); LYMPH# 1.29 X1000 (1.2-3.4); LYMPH% 11.9 % (20.5-51.1); MCH 26.9 PG (27-31); MCHC 29.3 g/dL (33-37); MCV 91.9 FL (81-99); MONO# 0.54 X1000 (0.11-0.59); MPV 12.5 FL (7.4-10.4); NEUT# 8.88 X1000 (1.4-6.5); NEUT% 82.1 % (42.2-75.2); PLT 149 X1000 (130-400); RDW 14.3 % (11.5-14.5); WBC 10.82 X1000 (4.8-10.8)
[2019-07-28 06:11] LABS: AGAP 14; BUN 19 mg/dL (8-22); CALCIUM 7.5 mg/dL (8.8-10.2); CHLORIDE 110 mmol/L (98-107); COSMO 298; CREATININE 0.7 mg/dL (0.5-0.9); ESTIMATED GFR > 60; GLUCOSE 153 mg/dL (70-104); POTASSIUM 3.2 mmol/L (3.5-5.1); SODIUM 147 mmol/L (136-145); TCO2 23 mmol/L (25-35)
[2019-07-28] MEDS: SYNTHROID IV SCH (06:43)
[2019-07-28] MEDS: SODIUM CHLORIDE 0.9% INJ PRN (06:43)
[2019-07-28] MEDS: DILAUDID IV PRN ×2 (08:41→14:35)
[2019-07-28] MEDS: DAKIN S TOP SCH ×2 (08:42→21:00)
[2019-07-28] MEDS: SANTYL OINT TOP SCH (08:44)
[2019-07-28] MEDS: POTASSIUM CHLORIDE 20 MEQ/SWI 20 MEQ/100 ML IVPB IV SCH ×3 (10:37→14:35)
--- NOTE | 2019-07-28 13:51 | PROGRESS NOTE ---
DATE: 07/28/2019 INTERVAL HISTORY: I was informed that overnight the patient did wake up once and told her nurse that she was tired of everything. I evaluated the patient at bedside, and one of her 3 sons was there with his family, and I discussed with them about the patient's critical condition. They state the patient was a little more responsive yesterday. SUBJECTIVE: She is not responding to any stimuli at the moment. With strong verbal stimuli. She does open her eyes. VITALS: Currently, her temperature is 101.1 degrees, pulse of 76, respiratory rate 25. Her blood pressure is 108/55, and she is saturating 92% currently on Venturi mask. PHYSICAL EXAMINATION: General: She is not in any distress. Oral cavity: Dry. Lungs: She has air entry bilateral and equal. No wheeze or rhonchi. Mild inframammary crackles. Cardiovascular: S1, S2 normal. Regular. No murmur or gallop. Abdomen: Soft, nontender. Extremities: No lower extremity edema. She has generalized rigidity without cogwheeling. On my previous examination and review of photographs, she had sacral decubitus wound destroying bone, as well as decubitus wounds affecting bilateral heels causing osteomyelitis and exposed bones, especially on the right. LABS: Suggestive of decreasing WBC count, normocytic anemia, normal platelet count. Electrolytes suggest improving sodium chloride and normalization of kidney function. However, her urine output has not really increased. It is close to 500 mL in last 24 hours. MICROBIOLOGY: Urine cultures and wound cultures are growing E coli which is sensitive to cefazolin and Zosyn. Blood cultures are growing Staphylococcus hominis which are sensitive to vancomycin. Repeat blood cultures are in lab. IMAGING: No new imaging. ASSESSMENT AND PLAN: 1. Staphylococcal hominis sepsis, acute hypoxic respiratory failure, lactic acidosis due to sacral osteomyelitis, right heel osteomyelitis, left lower lobe aspiration pneumonia. Continue intravenous fluids, intravenous ceftriaxone, intravenous vancomycin and intravenous metronidazole. Continue n.p.o. status. 2. Acute encephalopathy, a combination off metabolic encephalopathy and underlying neurodegenerative disease. I discussed with the pharmacy about adding additional dose of vancomycin currently considering episode of fever as well as mild hypotension plus low random vancomycin levels. 3. Hyponatremia, hyperchloremia, and acute kidney injury due to free water deficit due to poor oral intake leading to intravascular volume depletion. Continue D5 water at current rate and follow up with serial BMP as well as close input and output monitoring of Galo catheter. 4. History of multiple sclerosis, psychiatric illness requiring inpatient psychiatric admissions in December 2018, progressive functional decline due to neurodegenerative disorder with rigidity since last few months. Her prognosis is poor. Her code status is Do Not Resuscitate level 1. I discussed again with one of her 3 sons about her poor prognosis. I think at this point hospice care would be an appropriate option. Palliative care team is on board. I mentioned to the family that in terms of her prognosis, we probably were thinking in terms of a few days considering she has significant decline. I also explained to them that considering her overall health condition, she may not be a candidate for any aggressive interventions including surgical intervention. I answered all of their questions. cc: MD JACINTA Nguyen
[2019-07-28] MEDS: VANCOMYCIN 1,100 MG in NS 250 ML IV SCH (14:35)
[2019-07-29] MEDS: DUONEB (A & A) INH SCH ×4 (03:00→21:28)
[2019-07-29] MEDS: FLAGYL 500 MG/NS 500 MG/100 ML IVPB IV SCH ×4 (03:44→20:55)
[2019-07-29] MEDS: D5W 1,000 ML IV SCH (05:43)
[2019-07-29] MEDS: ROCEPHIN 1 GM in NS 50 ML IV SCH (05:48)
[2019-07-29] MEDS: SYNTHROID IV SCH ×2 (05:48→06:28)
[2019-07-29 06:41] LABS: EOS# 0.24 X1000 (0.0-0.7); EOS% 2.9 % (0.0-10.0); HEMATOCRIT 31.3 % (37.0-47.0); HEMOGLOBIN 9.4 g/dL (12.0-16.0); IMM GRAN# 0.05 X1000 (0.0-0.04); IMM GRAN% 0.6 % (0.0-0.5); LYMPH# 1.23 X1000 (1.2-3.4); LYMPH% 14.7 % (20.5-51.1); MCH 26.9 PG (27-31); MCV 89.7 FL (81-99); MONO# 0.38 X1000 (0.11-0.59); MONO% 4.6 % (1.7-9.3); MPV 12.7 FL (7.4-10.4); NEUT# 6.45 X1000 (1.4-6.5); NEUT% 77.2 % (42.2-75.2); PLT 113 X1000 (130-400); RBC 3.49 XMIL (4.2-5.4); RDW 13.9 % (11.5-14.5); WBC 8.35 X1000 (4.8-10.8)
--- NOTE | 2019-07-29 06:58 | Diag Imaging Result Doc PS360 ---
EXAM: CHEST-PORTABLE HISTORY: Follow up bilateral aspiration pneumonia TECHNIQUE: Single view COMPARISON: 07/25/2019 FINDINGS: Interval development of a left pleural effusion. There is also a left basilar infiltrate with atelectasis which have developed. Right lung remains clear. IMPRESSION: Interval worsening Electronically signed by Catracho Arango 07/29/2019 6:55 AM
[2019-07-29 07:24] LABS: AGAP 9; BUN 9 mg/dL (8-22); CALCIUM 7.9 mg/dL (8.8-10.2); CHLORIDE 103 mmol/L (98-107); COSMO 268; CREATININE 0.5 mg/dL (0.5-0.9); ESTIMATED GFR > 60; GLUCOSE 116 mg/dL (70-104); POTASSIUM 3.6 mmol/L (3.5-5.1); SODIUM 134 mmol/L (136-145); TCO2 22 mmol/L (25-35)
[2019-07-29] MEDS ORDERED: LR 1,000 ML IV ONE (07:43)
[2019-07-29] MEDS ORDERED: VANCOMYCIN 1,100 MG in NS 250 ML IV SCH (08:00)
[2019-07-29] MEDS: DAKIN S TOP SCH ×2 (09:06→20:55)
[2019-07-29] MEDS: LR 1,000 ML IV SCH ×3 (09:06→23:33)
[2019-07-29] MEDS: SANTYL OINT TOP SCH (09:07)
--- NOTE | 2019-07-29 11:12 | PROGRESS NOTE ---
DATE: 07/29/2019 INTERVAL HISTORY: Her urine output was charted inappropriately and looks like she had 1.2 L of urine output. She did not have any more fever episodes. However, she remained hypotensive so additional intravenous fluid boluses were given to her. SUBJECTIVE: This morning time she looks slightly more alert than before. She occasionally answered my questions by yes or no, though she was not entirely oriented. She is not able to engage in the clinical encounter meaningfully at the moment. VITAL SIGNS: Temperature 98.3 degrees, pulse 66, respiratory 20, blood pressure 103/45, mean arterial pressure has been anywhere between 58 to 77 in the last 24 hours. PHYSICAL EXAMINATION: General: Not in any acute distress. She appears ill. HEENT: Oral cavity is dry. She has a Ventimask. Decreased air entry bilateral inframammary region, especially left. No wheeze or rhonchi. Cardiovascular: S1, S2 normal. Not tachycardic. No murmur, rub, or gallop. Abdomen: Soft, nontender. Extremities: No lower extremity edema. She has generalized spasticity without any cogwheeling. On review of photographs and on my previous examination she had sacral decubitus wound destroying the bone as well as decubitus wounds affecting bilateral heels causing osteomyelitis and exposed bones, especially on the right. LABS: Suggestive of resolution of leukocytosis, normocytic anemia, mild thrombocytopenia, high acceptable range of electrolytes, normal kidney function, lactic acidosis. Blood cultures repeat are in the lab. Chest x-ray suggests interval worsening and development of left pleural effusion. EKG and echocardiogram is pending. ASSESSMENT AND PLAN: 1. Staphylococcus hominis sepsis, acute hypoxic respiratory failure and lactic acidosis due to sacral and right heel acute osteomyelitis with left lower lobe aspiration pneumonia. Change intravenous fluids to lactated Ringer's and continue intravenous ceftriaxone, vancomycin and intravenous metronidazole. Continue n.p.o. status. Her code status is DNR level 1. 2. Acute encephalopathy, a combination of metabolic encephalopathy and underlying neurodegenerative disease she appeared slightly more alert today than before. Her head CT on admission had worsening of cerebral white matter chronic microvascular ischemia without any acute process. 3. Hypernatremia, hyperchloremia and acute kidney injury on presentation due to free water deficit due to inability to take anything by mouth and intravascular depletion due to progressive functional decline and neurodegenerative disorder. Change intravenous fluids to lactated Ringer's. Her electrolyte abnormalities have improved. I will continue Galo catheter. 4. History of multiple sclerosis, psychiatric illness requiring inpatient psychiatric admissions in December 2018 and progressive functional decline due to the type of neuro general degenerative disorder with mutism and rigidity. Her prognosis is poor. Neurology is on board. DISPOSITION: I had a discussion with 2 of the patient's sons and sister before and 3rd of her sons yesterday about her poor prognosis due to her neuro degenerative disorder. Her course is a DNR level 1. At this point I again had a discussion with the palliative care team to bring up hospice discussion. I think she is an appropriate candidate for hospice. Considering that her prognosis is poor and aggressive measures would not change anything as per the family wishes I will continue her on conservative medical management and await further discussion of palliative care team. Plan of care discussed with the patient's 2 sons and sister day before yesterday and 3rd son yesterday. Their questions were answered. ADDENDUM: Palliative care team had a discussion with the family members and I was informed that the plan would be to discharge patient back to the [facility] with palliative care services. However, since this was late in the day I could not have a final discussion with the patient's family or get the details about this plan. cc: Jasmeet Oliva MD MTDD
--- NOTE | 2019-07-29 11:49 | EKG Report ---
Test Performed on : 07/29/2019 10:45:50 AM Test Reason : Hypotension. Evaluate for ACS Blood Pressure : / mmHG Vent. Rate : 074 BPM Atrial Rate : 074 BPM P-R Int : 168 ms QRS Dur : 094 ms QT Int : 410 ms P-R-T Axes : 086 043 083 degrees QTc Int : 455 ms Normal sinus rhythm. Normal ECG When compared with ECG of 23-APR-2019 18:27, Criteria for Inferior infarct are no longer present Nonspecific T wave abnormality now evident in Lateral leads Confirmed by Vin LEAL, Maury Neely ([id number]) on 07/30/2019 11:06:50 PM
[2019-07-29] MEDS: DILAUDID IV PRN (15:38)
--- NOTE | 2019-07-29 19:20 | ECHO REPORT ---
ORDER DATE: 07/29/2019 INTERPRETING PHYSICIAN: Dr. Aftab Vasques. REQUESTING PHYSICIAN: Jasmeet Oliva MD. CLINICAL INDICATIONS: A 73-year-old female with septicemia due to Staphylococcus aureus. Evaluate for vegetations. M-MODE MEASUREMENTS: Left ventricle end diastole: 5.6 cm. Left ventricle end systole: 3.6 cm. Posterior wall: 0.9 cm. Interventricular septum: 0.9 cm. Left atrium: 4.0 cm. Aortic root: 3.1 cm. SUMMARY OF 2-DIMENSIONAL IMAGIN. The left ventricular function is normal. Ejection fraction is estimated at 58%. No wall motion abnormality is noted. 2. The aortic valve looks grossly normal. Color flow mapping is unremarkable 3. The mitral valve also looks grossly normal. Color flow mapping shows a mild degree of regurgitation. 4. The tricuspid valve shows a mild to moderate degree of regurgitation. Pulmonary pressure is estimated at 76 mmHg, consistent with significant pulmonary hypertension. 5. The pulmonic valve is grossly normal. Color flow mapping unremarkable. 6. There is no definite pericardial effusion. There is no evidence of masses or thrombus. 7. The rest of the chambers appear to be grossly normal. 8. The tricuspid valve shows a mild to moderate degree of rotation. 9.Pulse wave Doppler of mitral inflow shows normal E/A ratio. 10.Tissue Doppler of septal and lateral mitral annulus averages 8 cm per second. 11.The pulse wave Doppler of pulmonary venous flow is normal. 12.There is no diastolic dysfunction. Clinical correlation is recommended. cc: MD Jasmeet Wilson MD [facility]
[2019-07-29] MEDS: VANCOMYCIN 1,100 MG in NS 250 ML IV SCH (20:55)
[2019-07-30] MEDS: FLAGYL 500 MG/NS 500 MG/100 ML IVPB IV SCH ×3 (03:04→15:14)
[2019-07-30] MEDS: DILAUDID IV PRN ×2 (03:06→12:36)
[2019-07-30] MEDS: DUONEB (A & A) INH SCH ×2 (03:46→11:13)
[2019-07-30] MEDS: ROCEPHIN 1 GM in NS 50 ML IV SCH (04:17)
[2019-07-30 06:36] LABS: BASO# 0.01 X1000 (0.0-0.2); BASO% 0.1 % (0.0-0.8); EOS# 0.13 X1000 (0.0-0.7); EOS% 1.9 % (0.0-10.0); HEMATOCRIT 30.8 % (37.0-47.0); HEMOGLOBIN 9.2 g/dL (12.0-16.0); IMM GRAN# 0.03 X1000 (0.0-0.04); IMM GRAN% 0.4 % (0.0-0.5); LYMPH# 1.12 X1000 (1.2-3.4); LYMPH% 16.8 % (20.5-51.1); MCH 26.7 PG (27-31); MCHC 29.9 g/dL (33-37); MCV 89.5 FL (81-99); MONO# 0.36 X1000 (0.11-0.59); MONO% 5.4 % (1.7-9.3); MPV 11.9 FL (7.4-10.4); NEUT# 5.03 X1000 (1.4-6.5); NEUT% 75.4 % (42.2-75.2); PLT 158 X1000 (130-400); RBC 3.44 XMIL (4.2-5.4); RDW 13.8 % (11.5-14.5); WBC 6.68 X1000 (4.8-10.8)
[2019-07-30 06:48] LABS: AGAP 11; BUN 6 mg/dL (8-22); CALCIUM 7.8 mg/dL (8.8-10.2); CHLORIDE 109 mmol/L (98-107); COSMO 286; CREATININE 0.4 mg/dL (0.5-0.9); ESTIMATED GFR > 60; GLUCOSE 90 mg/dL (70-104); SODIUM 145 mmol/L (136-145); TCO2 25 mmol/L (25-35)
[2019-07-30] MEDS: SYNTHROID IV SCH (06:48)
[2019-07-30] MEDS: SODIUM CHLORIDE 0.9% INJ PRN (06:48)
[2019-07-30 07:03] LABS: LYMPHS 14 % (21-51); MONO 6 % (1-9); SEGS 80 % (42-75)
[2019-07-30] MEDS: DAKIN S TOP SCH (09:04)
[2019-07-30] MEDS: SANTYL OINT TOP SCH (09:04)
[2019-07-30 11:21] VITALS: BP 116/49
--- NOTE | 2019-07-30 12:17 | DISCHARGE SUMMARY ---
ADMISSION DATE: 07/26/2019 DISCHARGE DATE: 07/30/2019 FINAL DISCHARGE DIAGNOSES: 1. Sepsis secondary to Staphylococcus hominis. 2. Acute on chronic hypoxemic respiratory failure. 3. Right heel osteomyelitis. 4. Left lower lobe aspiration pneumonia. 5. Infected sacral decubitus ulceration secondary to Escherichia coli. 6. Multiple sclerosis. 7. Hypothyroidism. CONSULTATION: Neurology consultation with Dr. Martinez. IMAGIN. Chest x-ray performed on 07/25/2019 that revealed bibasilar infiltrates consistent with aspiration pneumonia. 2. Chest CT performed on 07/25/2019 that revealed severe pulmonary artery hypertension. Aspiration pneumonia in both lower lobes of the lung. 3. Echocardiogram performed on 07/29/2019 that revealed pulmonary pressure of 76 mmHg and ejection fraction of 58%. HOSPITAL COURSE: Ms. Casarez is a 73-year-old female with a history of multiple sclerosis, pulmonary hypertension, and multiple admissions for psychiatric illness, who presented to the ER with possible aspiration. On admission, a chest x-ray was done that revealed pneumonia. This was then followed by a chest CT that confirmed bilateral lower lobe aspiration pneumonia. Blood cultures were obtained. Also, the patient was noted to have an infected sacral decubitus wound, as well as right heel osteomyelitis. Cultures were also obtained of these sites. The patient was started on broad-spectrum antibiotics and Neurology was consulted for further recommendations. Given the patient's multiple comorbidities, Palliative Care was also consulted for goals of care. Ultimately, the wound culture grew out Escherichia coli and the urine culture also grew out Escherichia coli, and the blood cultures grew out Staphylococcus hominis. The patient's overall condition was discussed with the power of body presser and family. The patient and her family ultimately decided to focus on comfort only. Arrangements were made for the patient to be discharged to [facility] with Palliative Care Services. DISCHARGE MEDICATIONS: 1. Atropine 2 drops sublingual every 2 hours p.r.n. for secretions. 2. Ativan 1 mg p.o. every 2 hours p.r.n. for anxiety. 3. Roxanol 0.25 mL oral every 2 hours p.r.n. for pain. DISPOSITION: The patient will be discharged to [facility] with Palliative Care Services to initiate comfort measures only. The patient is a DNR level 1. cc: Genet Elaine MD
[2019-07-30] MEDS ORDERED: DILAUDID IV ONE (14:52)
== END 2019-07-30 15:17 | DRG 871 ==
LOC: SUPCPDRO → ED 19:13 → SUATTDRO 07-26 01:43 → 2N 07-26 01:43
PROVIDERS: ATTEND Internal Medicine